=== PATIENT | male | born 1945 | race Two or more races ===

== ENCOUNTER 2022-02-09 18:23 | Inpatient (IN) | payer OTHER ==
[~2022-02-09] VITALS: Ht 190.5 cm; Wt 73.7 kg
[2022-02-09] MEDS ORDERED: SODIUM CHLORIDE 0.9% 1,000 ML IV ONE (19:00)
[2022-02-09 19:42] LABS: Basophils # (auto) 0.1 10 ^3/uL (0-0.2); Basophils % (auto) 1.5 % (0.0-2.0); Eosinophils # (auto) 0.2 10 ^3/uL (0-0.8); Eosinophils % (auto) 3.4 % (0.0-7.0); Hematocrit 39.4 % (41.0-53.0); Lymphocytes # (auto) 1.5 10 ^3/uL (0.4-5.4); Lymphocytes % (auto) 30.2 % (10.0-50.0); Mean Corpuscular Hemoglobin 32.1 pg (28.0-32.0); Mean Corpuscular Volume 97.4 fL (80.0-100.0); Monocytes # (auto) 0.6 10 ^3/uL (0-1.3); Monocytes % (auto) 12.5 % (0.0-12.0); Neutrophils # (auto) 2.6 10 ^3/uL (1.6-8.6); Neutrophils % (auto) 52.4 % (37.0-80.0); Nucleated Red Blood Cells % 0.1 %; Red Blood Cells 4.05 10^6/uL (4.5-5.90); Red Cell Distribution Width 15.8 % (11.8-14.3); White Blood Cell 4.9 10^3/uL (4.4-10.8)
[2022-02-09 20:06] LABS: Albumin 3.9 g/dL (3.4-5.0); BUN/Creatinine Ratio 9.9; Calcium 9.3 mg/dL (8.5-10.1); Magnesium 1.9 mg/dL (1.6-2.6); Potassium 3.9 mmol/L (3.5-5.1)
[2022-02-09 20:09] LABS: Bilirubin, Total 0.7 mg/dL (0.2-1.0); Total Protein 7.6 g/dL (6.4-8.2)
[2022-02-09] MEDS ORDERED: ONDANSETRON HCL 4 MG/2 ML VIAL IV PRN (21:45)
[2022-02-09] MEDS ORDERED: MORPHINE SULFATE INJ 2 MG/ml SYRG IV PRN (21:45)
[2022-02-09] MEDS ORDERED: DEXTROSE (50%) 50ML SYRG IV PRN (21:45)
[2022-02-09] MEDS ORDERED: ACETAMINOPHEN 325 MG TAB PO PRN (21:45)
[2022-02-09] MEDS ORDERED: NITROGLYCERIN 0.4 MG SL TAB SL PRN (21:45)
[2022-02-09] MEDS ORDERED: AZITHROMYCIN 500MG/ 250ML 250 ML IV ONE (22:15)
[2022-02-09] MEDS: ACCU-CHEK COMFORT CURVE STRIP VI SCH (22:18)
[2022-02-09] MEDS: InsuLIN REG 1unit/0.01ml Soln (100units/ml) SC SCH (22:21)
[2022-02-10] MEDS ORDERED: ALBUMIN 5% 250 ML IV ONE (00:45)
[2022-02-10 05:06] LABS: Basophils # (auto) 0 10 ^3/uL (0-0.2); Basophils % (auto) 0.6 % (0.0-2.0); Eosinophils # (auto) 0.1 10 ^3/uL (0-0.8); Hematocrit 34.4 % (41.0-53.0); Hemoglobin 11.5 g/dL (13.5-17.5); Lymphocytes # (auto) 1.2 10 ^3/uL (0.4-5.4); Lymphocytes % (auto) 20.9 % (10.0-50.0); Mean Corpuscular Hemoglobin 32.3 pg (28.0-32.0); Mean Corpuscular Hgb Conc. 33.4 g/dL (32.0-36.0); Mean Corpuscular Volume 96.7 fL (80.0-100.0); Monocytes # (auto) 0.8 10 ^3/uL (0-1.3); Monocytes % (auto) 13.2 % (0.0-12.0); Neutrophils # (auto) 3.6 10 ^3/uL (1.6-8.6); Neutrophils % (auto) 63.3 % (37.0-80.0); Nucleated Red Blood Cells % 0.2 %; Red Blood Cells 3.56 10^6/uL (4.5-5.90); Red Cell Distribution Width 16.2 % (11.8-14.3); White Blood Cell 5.7 10^3/uL (4.4-10.8)
[2022-02-10] MEDS ORDERED: SODIUM CHLORIDE 0.9% 1,000 ML IV ONE (05:10)
[2022-02-10 05:28] LABS: Calcium 8.9 mg/dL (8.5-10.1); Potassium 3.7 mmol/L (3.5-5.1)
[2022-02-10 05:30] LABS: BUN/Creatinine Ratio 11.4
[2022-02-10] MEDS: InsuLIN REG 1unit/0.01ml Soln (100units/ml) SC SCH ×4 (06:50→21:30)
[2022-02-10] MEDS: ACCU-CHEK COMFORT CURVE STRIP VI SCH ×4 (06:50→21:17)
[2022-02-10 07:18] LABS: Urine Amorphous Crystal FEW /hpf (None Seen); Urine Bacteria MOD /hpf (None Seen); Urine Blood Negative /uL (Negative); Urine Mucus FEW (None Seen); Urine Specific Gravity 1.016 (1.001-1.035); Urine WBC 40 /hpf (0 - 3)
[2022-02-10] MEDS: ENOXAPARIN SOD 40 MG/0.4 ML SYRINGE SC SCH (09:35)
[2022-02-10] MEDS: PANTOPRAZOLE 40 MG TAB PO SCH (09:35)
[2022-02-10] MEDS ORDERED: cefTRIAXone 1GM/50ML D5W 50 ML IV ONE (11:15)
[2022-02-10] MEDS: SODIUM CHLORIDE 0.9% 1,000 ML IV SCH ×2 (11:33→21:31)
[2022-02-10 16:00] VITALS: BP 104/71
[2022-02-10] MEDS ORDERED: METF-372 PO (16:14)
[2022-02-10] MEDS ORDERED: INSU1INJ4 SC (16:14)
[2022-02-10] MEDS ORDERED: GLIP10TA9 PO (16:14)
[2022-02-10] MEDS ORDERED: GLUC-149 XX (16:14)
[2022-02-10 16:50] VITALS: BP 104/71
[2022-02-10] MEDS: Glucerna Carbsteady SHAKE Stawberry 8oz PO SCH (18:10)
[2022-02-10] MEDS: AZITHROMYCIN 500MG/ 250ML 250 ML IV SCH (21:31)
[2022-02-10 22:00] VITALS: BP 104/69
[2022-02-11 05:00] VITALS: BP 99/63
[2022-02-11] MEDS: ACCU-CHEK COMFORT CURVE STRIP VI SCH ×4 (06:28→21:55)
[2022-02-11] MEDS: InsuLIN REG 1unit/0.01ml Soln (100units/ml) SC SCH ×4 (06:33→22:01)
[2022-02-11 07:30] VITALS: BP 134/80
[2022-02-11] MEDS: SODIUM CHLORIDE 0.9% 1,000 ML IV SCH ×2 (07:45→17:15)
[2022-02-11 07:55] LABS: Basophils # (auto) 0 10 ^3/uL (0-0.2); Basophils % (auto) 0.6 % (0.0-2.0); Eosinophils # (auto) 0.1 10 ^3/uL (0-0.8); Eosinophils % (auto) 2.4 % (0.0-7.0); Hematocrit 36.7 % (41.0-53.0); Hemoglobin 12.1 g/dL (13.5-17.5); Lymphocytes % (auto) 24.9 % (10.0-50.0); Mean Corpuscular Hgb Conc. 33.1 g/dL (32.0-36.0); Mean Corpuscular Volume 96.7 fL (80.0-100.0); Monocytes # (auto) 0.5 10 ^3/uL (0-1.3); Monocytes % (auto) 12.9 % (0.0-12.0); Neutrophils # (auto) 2.5 10 ^3/uL (1.6-8.6); Neutrophils % (auto) 59.2 % (37.0-80.0); Nucleated Red Blood Cells % 0.1 %; Red Blood Cells 3.79 10^6/uL (4.5-5.90); Red Cell Distribution Width 15.9 % (11.8-14.3); White Blood Cell 4.2 10^3/uL (4.4-10.8)
[2022-02-11] MEDS: Glucerna Carbsteady SHAKE Stawberry 8oz PO SCH ×3 (08:30→17:38)
[2022-02-11 08:31] LABS: Potassium 3.6 mmol/L (3.5-5.1)
[2022-02-11 08:37] LABS: BUN/Creatinine Ratio 10.6; Bilirubin, Total 0.4 mg/dL (0.2-1.0); Calcium 8.9 mg/dL (8.5-10.1); Magnesium 1.5 mg/dL (1.6-2.6); Total Protein 6.3 g/dL (6.4-8.2)
[2022-02-11] MEDS: cefTRIAXone 1GM/50ML D5W 50 ML IV SCH (08:58)
[2022-02-11] MEDS: PANTOPRAZOLE 40 MG TAB PO SCH (08:58)
[2022-02-11] MEDS: ENOXAPARIN SOD 40 MG/0.4 ML SYRINGE SC SCH (08:59)
[2022-02-11 09:00] VITALS: BP 134/80
[2022-02-11 13:00] VITALS: BP 132/81
[2022-02-11 16:46] VITALS: BP 118/76
[2022-02-11 22:00] VITALS: BP 126/81
[2022-02-11] MEDS: AZITHROMYCIN 500MG/ 250ML 250 ML IV SCH (22:04)
[2022-02-11] MEDS: MAGNESIUM OXIDE 400 MG TAB PO SCH (22:04)
[2022-02-12] MEDS: SODIUM CHLORIDE 0.9% 1,000 ML IV SCH ×2 (03:15→12:37)
[2022-02-12 05:00] VITALS: BP 122/80
[2022-02-12 05:26] LABS: Calcium 8.8 mg/dL (8.5-10.1); Magnesium 1.5 mg/dL (1.6-2.6); Potassium 3.2 mmol/L (3.5-5.1)
[2022-02-12 05:28] LABS: BUN/Creatinine Ratio 10.9
[2022-02-12] MEDS: ACCU-CHEK COMFORT CURVE STRIP VI SCH ×3 (06:15→17:41)
[2022-02-12] MEDS: InsuLIN REG 1unit/0.01ml Soln (100units/ml) SC SCH ×3 (06:19→17:41)
[2022-02-12 08:00] VITALS: BP 133/89
[2022-02-12] MEDS: Glucerna Carbsteady SHAKE Stawberry 8oz PO SCH ×3 (08:00→17:56)
[2022-02-12 08:30] VITALS: BP 133/89
[2022-02-12] MEDS: cefTRIAXone 1GM/50ML D5W 50 ML IV SCH (09:00)
[2022-02-12] MEDS: MAGNESIUM OXIDE 400 MG TAB PO SCH (10:12)
[2022-02-12] MEDS: PANTOPRAZOLE 40 MG TAB PO SCH (10:12)
[2022-02-12] MEDS: ENOXAPARIN SOD 40 MG/0.4 ML SYRINGE SC SCH (10:12)
[2022-02-12 13:00] VITALS: BP 145/90
[2022-02-12] MEDS ORDERED: LEVO-28 PO (16:27)
[2022-02-12 16:41] VITALS: BP 145/89
[2022-02-12 16:57] VITALS: BP 145/90
[2022-02-12] MEDS ORDERED: AZITHROMYCIN 250 MG TAB PO SCH (21:00)
== END 2022-02-12 20:20 | disposition home health service (06) | DRG 193 ==
LOC: ER 18:23 → EDBD 18:23 → TELE 21:44 → UNDODISIN 02-10 14:47 → TELE-WESTW 02-10 15:26
PROVIDERS: ADMIT Nurse Practitioner; ATTEND Internal Medicine Geriatric Medicine
DX: J18.9 Pneumonia, unspecified organism (principal); N17.0 Acute kidney failure with tubular necrosis; N39.0 Urinary tract infection, site not specified; R64 Cachexia; E11.65 Type 2 diabetes mellitus with hyperglycemia; Z20.822 Contact with and (suspected) exposure to COVID-19; I95.9 Hypotension, unspecified; Z83.3 Family history of diabetes mellitus; Z91.14 Patient's other noncompliance with medication regimen; Z68.20 Body mass index [BMI] 20.0-20.9, adult
CPT/HCPCS: 36415; 70450; 71045; 80048; 80053; 81001; 82962; 83605; 83735; 83880; 84484; 85025; 93005; 96361; 96365; 96366; 96367; 97163; G0378; J0696; J1815

== ENCOUNTER 2022-06-16 15:09 | Inpatient (IN) | payer OTHER ==
[~2022-06-16] VITALS: Ht 190.5 cm; Wt 70.1 kg
[~2022-06-16 15:09] MED LIST: GLIP10TA9 PO; GLUC-149 XX; INSU1INJ4 SC; LEVO-28 PO; METF-372 PO
[2022-06-16] MEDS ORDERED: InsuLIN REG 1unit/0.01ml Soln (100units/ml) IV ONE ×2 (15:45→17:15)
[2022-06-16] MEDS ORDERED: SODIUM CHLORIDE 0.9% 1,000 ML IVB ONE (15:45)
[2022-06-16 16:21] LABS: Basophils # (auto) 0 10 ^3/uL (0-0.2); Basophils % (auto) 0.6 % (0.0-2.0); Eosinophils # (auto) 0 10 ^3/uL (0-0.8); Hematocrit 45.9 % (41.0-53.0); Hemoglobin 14.2 g/dL (13.5-17.5); Lymphocytes % (auto) 15.4 % (10.0-50.0); Mean Corpuscular Hemoglobin 28.2 pg (28.0-32.0); Mean Corpuscular Hgb Conc. 30.9 g/dL (32.0-36.0); Mean Corpuscular Volume 91.1 fL (80.0-100.0); Monocytes # (auto) 0.3 10 ^3/uL (0-1.3); Monocytes % (auto) 4.5 % (0.0-12.0); Neutrophils # (auto) 5.1 10 ^3/uL (1.6-8.6); Neutrophils % (auto) 79.5 % (37.0-80.0); Red Blood Cells 5.04 10^6/uL (4.5-5.90); Red Cell Distribution Width 14.8 % (11.8-14.3); White Blood Cell 6.4 10^3/uL (4.4-10.8)
[2022-06-16 16:59] LABS: Alkaline Phosphatase 98 U/L (45-117); Anion Gap 28 (5-15); Aspartate Aminotransferase 17 U/L (15-37); BUN/Creatinine Ratio 15.2; Blood Urea Nitrogen 27 mg/dL (7-18); Carbon Dioxide 12 mmol/L (21-32); Chloride 90 mmol/L (98-107); GFR African American 48 mL/min; GFR Non-African American 40 mL/min; Sodium 130 mmol/L (136-145)
[2022-06-16 17:00] LABS: Alanine Aminotransferase 16 U/L (16-61); Albumin 4.3 g/dL (3.4-5.0); Calcium 10.3 mg/dL (8.5-10.1)
[2022-06-16 17:05] LABS: Potassium 5.7 mmol/L (3.5-5.1)
[2022-06-16 17:06] LABS: Glucose 644 mg/dL (74-106)
[2022-06-16] MEDS ORDERED: SODIUM BICARBONATE 8.4 % INJ 50ML VIAL IV ONE (17:15)
[2022-06-16] MEDS ORDERED: CALCIUM GLUC 1,000mg/50ml-NS 50 ML IV ONE (17:15)
[2022-06-16 17:26] LABS: Urine Bacteria NONE SEEN /hpf (None Seen); Urine Blood Negative /uL (Negative); Urine Mucus FEW (None Seen); Urine WBC <1 /hpf (0 - 3)
[2022-06-16] MEDS: ACCU-CHEK COMFORT CURVE STRIP VI SCH ×5 (18:00→23:55)
[2022-06-16] MEDS ORDERED: INSULIN LANTUS (GLARGINE) 1 /0.01ml (100units/ml) SC ONE (18:00)
[2022-06-16] MEDS ORDERED: InsuLIN R (HUMAN) 100 UNITS in SODIUM CHL 0.9% 99 ML IV SCH (18:00)
[2022-06-16] MEDS ORDERED: DEXTROSE (50%) 50ML SYRG IV PRN (18:00)
[2022-06-16] MEDS ORDERED: NITROGLYCERIN 0.4 MG SL TAB SL PRN (18:15)
[2022-06-16] MEDS ORDERED: MORPHINE SULFATE INJ 2 MG/ml SYRG IV PRN (18:15)
[2022-06-16] MEDS ORDERED: PANTOPRAZOLE 40 MG/10 ML VIAL INJ IV ONE (18:15)
[2022-06-16] MEDS: SODIUM CHLORIDE 0.9% 1,000 ML IV SCH ×2 (18:55→21:48)
[2022-06-16 19:07] LABS: Magnesium 2.3 mg/dL (1.6-2.6); Phosphorus 5.6 mg/dL (2.5-4.90)
[2022-06-16] MEDS ORDERED: SODIUM CHLORIDE 0.9% 1,000 ML IV SCH (22:00)
[2022-06-17] VITALS (7 sets, daily range): BP systolic 139–149; BP diastolic 87–95
[2022-06-17 00:20] LABS: BUN/Creatinine Ratio 16.7; Potassium 4.8 mmol/L (3.5-5.1)
[2022-06-17] MEDS: SODIUM CHLORIDE 0.9% 1,000 ML IV SCH ×2 (00:36→06:45)
[2022-06-17] MEDS: ACCU-CHEK COMFORT CURVE STRIP VI SCH ×8 (01:32→22:15)
[2022-06-17 05:57] LABS: Basophils # (auto) 0.1 10 ^3/uL (0-0.2); Basophils % (auto) 0.7 % (0.0-2.0); Eosinophils # (auto) 0 10 ^3/uL (0-0.8); Eosinophils % (auto) 0.2 % (0.0-7.0); Hematocrit 38.8 % (41.0-53.0); Hemoglobin 13.2 g/dL (13.5-17.5); Lymphocytes # (auto) 1.6 10 ^3/uL (0.4-5.4); Lymphocytes % (auto) 19.2 % (10.0-50.0); Mean Corpuscular Hemoglobin 29.6 pg (28.0-32.0); Mean Corpuscular Hgb Conc. 34.1 g/dL (32.0-36.0); Mean Corpuscular Volume 86.8 fL (80.0-100.0); Monocytes % (auto) 11.9 % (0.0-12.0); Neutrophils # (auto) 5.7 10 ^3/uL (1.6-8.6); Red Blood Cells 4.47 10^6/uL (4.5-5.90); Red Cell Distribution Width 14.2 % (11.8-14.3); White Blood Cell 8.4 10^3/uL (4.4-10.8)
[2022-06-17 07:29] LABS: Albumin 3.5 g/dL (3.4-5.0); BUN/Creatinine Ratio 17.2; Bilirubin, Total 0.5 mg/dL (0.2-1.0); Calcium 9.2 mg/dL (8.5-10.1); Potassium 4.1 mmol/L (3.5-5.1)
[2022-06-17] MEDS: D5W/SOD CHL 0.45% 1,000 ML IV SCH ×2 (08:09→18:00)
[2022-06-17] MEDS ORDERED: DEXTROSE (50%) 50ML SYRG IV PRN (09:00)
[2022-06-17 09:12] LABS: Urine Bacteria FEW /hpf (None Seen); Urine Blood Negative /uL (Negative); Urine Hyaline Cast FEW /lpf (0 - 2); Urine Mucus FEW (None Seen); Urine Specific Gravity 1.022 (1.001-1.035); Urine WBC 1 /hpf (0 - 3)
[2022-06-17] MEDS ORDERED: PANTOPRAZOLE 40 MG/10 ML VIAL INJ IV SCH (10:00)
[2022-06-17] MEDS: ENOXAPARIN SOD 40 MG/0.4 ML SYRINGE SC SCH (10:08)
[2022-06-17] MEDS: INSULIN LANTUS (GLARGINE) 1 /0.01ml (100units/ml) SC SCH (10:11)
[2022-06-17] MEDS: PANTOPRAZOLE 40 MG TAB PO SCH ×2 (10:12→22:07)
[2022-06-17 10:24] LABS: INR 1.02 (0.9-1.15)
[2022-06-17] MEDS: SUCRALFATE 1 GM/10 ML ORAL SUSP PO SCH ×3 (11:33→22:13)
[2022-06-17] MEDS: InsuLIN REG 1unit/0.01ml Soln (100units/ml) SC SCH ×2 (11:37→17:39)
[2022-06-17 15:28] LABS: BUN/Creatinine Ratio 15.5; Calcium 9.1 mg/dL (8.5-10.1); Potassium 3.5 mmol/L (3.5-5.1)
[2022-06-17] MEDS ORDERED: InsuLIN REG 1unit/0.01ml Soln (100units/ml) SC SCH (22:00)
[2022-06-18 05:00] VITALS: BP 155/93
[2022-06-18 06:12] LABS: Basophils # (auto) 0 10 ^3/uL (0-0.2); Basophils % (auto) 0.5 % (0.0-2.0); Eosinophils # (auto) 0.1 10 ^3/uL (0-0.8); Eosinophils % (auto) 1.3 % (0.0-7.0); Hematocrit 36.3 % (41.0-53.0); Hemoglobin 12.3 g/dL (13.5-17.5); Lymphocytes # (auto) 1.6 10 ^3/uL (0.4-5.4); Lymphocytes % (auto) 29.2 % (10.0-50.0); Mean Corpuscular Hemoglobin 28.7 pg (28.0-32.0); Mean Corpuscular Hgb Conc. 33.8 g/dL (32.0-36.0); Mean Corpuscular Volume 85.1 fL (80.0-100.0); Monocytes # (auto) 0.6 10 ^3/uL (0-1.3); Monocytes % (auto) 11.2 % (0.0-12.0); Neutrophils # (auto) 3.2 10 ^3/uL (1.6-8.6); Neutrophils % (auto) 57.8 % (37.0-80.0); Nucleated Red Blood Cells % 0.1 %; Red Blood Cells 4.27 10^6/uL (4.5-5.90); Red Cell Distribution Width 14.5 % (11.8-14.3); White Blood Cell 5.6 10^3/uL (4.4-10.8)
[2022-06-18 06:31] LABS: Potassium 3.3 mmol/L (3.5-5.1)
[2022-06-18 06:35] LABS: BUN/Creatinine Ratio 12.7; Calcium 8.4 mg/dL (8.5-10.1)
[2022-06-18] MEDS: InsuLIN REG 1unit/0.01ml Soln (100units/ml) SC SCH ×2 (07:55→11:30)
[2022-06-18] MEDS: ACCU-CHEK COMFORT CURVE STRIP VI SCH ×2 (07:56→11:30)
[2022-06-18] MEDS ORDERED: NALOXONE HCL 0.4 MG/ML VIAL ONE (08:38)
[2022-06-18] MEDS ORDERED: SODIUM CHLORIDE LOCK 10 ML ONE (08:38)
[2022-06-18] MEDS ORDERED: MIDAZOLAM HCL 5 MG/ML-1ML VIAL ONE (08:38)
[2022-06-18] MEDS ORDERED: LIDOCAINE 2%HCL (LOCAL ANESTH.) INJ 20ML MDV ONE (08:39)
[2022-06-18] MEDS ORDERED: fentaNYL CITRATE 100 MCG/2 ML VL ONE (08:39)
[2022-06-18] MEDS ORDERED: LIDOCAINE VISCOUS 2% 15ML UD ONE (08:40)
[2022-06-18] MEDS ORDERED: diphenhdrAMINE HCL 50 MG/1 ML VL ONE (08:41)
[2022-06-18] MEDS ORDERED: FLUMAZENIL 0.1 MG/ML INJ 10ML MDV IV ONE (08:42)
[2022-06-18 09:00] VITALS: BP 158/93
[2022-06-18] MEDS: INSULIN LANTUS (GLARGINE) 1 /0.01ml (100units/ml) SC SCH (10:00)
[2022-06-18] MEDS ORDERED: POTASSIUM CHL 20 Meq TABLET PO ONE (10:45)
[2022-06-18] MEDS: SUCRALFATE 1 GM/10 ML ORAL SUSP PO SCH ×2 (10:51→12:03)
[2022-06-18] MEDS: PANTOPRAZOLE 40 MG TAB PO SCH (10:51)
[2022-06-18] MEDS: ENOXAPARIN SOD 40 MG/0.4 ML SYRINGE SC SCH (10:52)
[2022-06-18] MEDS ORDERED: SUCR1SUS10 PO (11:32)
[2022-06-18] MEDS ORDERED: PANT40TA2 PO (11:32)
[2022-06-18 12:52] VITALS: BP 148/88
[2022-06-18 12:56] VITALS: BP 148/88
== END 2022-06-18 14:10 | disposition home or self-care (01) | DRG 638 ==
LOC: ER 15:09 → TELE 18:04 → TELE-CENTR 06-17 14:07
PROVIDERS: ADMIT Nurse Practitioner Family; ATTEND Internal Medicine Geriatric Medicine
PROC: 0DJ08ZZ Inspection of Upper Intestinal Tract, Via Natural or Artificial Opening Endoscopic (ICD-10-PCS; principal; 2022-06-18 09:20)
DX: E11.10 Type 2 diabetes mellitus with ketoacidosis without coma (principal); E87.0 Hyperosmolality and hypernatremia; E87.1 Hypo-osmolality and hyponatremia; N17.9 Acute kidney failure, unspecified; E83.52 Hypercalcemia; E87.5 Hyperkalemia; Z20.822 Contact with and (suspected) exposure to COVID-19; E87.6 Hypokalemia; K21.00 Gastro-esophageal reflux disease with esophagitis, without bleeding; K29.00 Acute gastritis without bleeding; K29.80 Duodenitis without bleeding; Z79.4 Long term (current) use of insulin; Z82.49 Family history of ischemic heart disease and other diseases of the circulatory system; Z83.3 Family history of diabetes mellitus
CPT/HCPCS: 36415; 36600; 43245; 74176; 80048; 80053; 81001; 82010; 82805; 82962; 83036; 83735; 83880; 83930; 84100; 85025; 85610; 87426; 93005; 96365; 96375; 99291; C9113; G0378; J1815; J2250

== ENCOUNTER 2023-02-16 18:18 | Inpatient (IN) | payer OTHER ==
[2023-02-16] VITALS (7 sets, daily range): BP systolic 90–136; BP diastolic 47–70; PULSE 111–137; RESP 27–33; TEMP 99.6; O2SAT 98–100
[~2023-02-16] VITALS: Ht 188 cm; Wt 94.1 kg
[~2023-02-16 18:18] MED LIST changes: -LEVO-28 PO; +PANT40TA2 PO; +SUCR1SUS26 PO
[2023-02-16] MEDS ORDERED: InsuLIN REG 1unit/0.01ml Soln (100units/ml) IV ONE (18:45)
[2023-02-16] MEDS ORDERED: CALCIUM GLUC 1,000mg/50ml-NS 50 ML IV ONE (18:45)
[2023-02-16] MEDS ORDERED: SODIUM CHLORIDE 0.9% 2,000 ML IV ONE (19:00)
[2023-02-16 19:01] LABS: Hemoglobin 11.8 g/dL (13.5-17.5); Nucleated Red Blood Cells % 0.1 %
[2023-02-16 19:03] LABS: Basophils # (auto) 0 10 ^3/uL (0-0.2); Basophils % (auto) 0.2 % (0.0-2.0)
[2023-02-16 19:12] LABS: Eosinophils # (auto) 0.1 10 ^3/uL (0-0.8); Hematocrit 42.5 % (41.0-53.0); Lymphocytes # (auto) 1.1 10 ^3/uL (0.4-5.4); Mean Corpuscular Hgb Conc. 27.7 g/dL (32.0-36.0)
[2023-02-16 19:14] LABS: Eosinophils % (auto) 0.4 % (0.0-7.0); Lymphocytes % (auto) 5.9 % (10.0-50.0); Mean Corpuscular Hemoglobin 32.8 pg (28.0-32.0); Mean Corpuscular Volume 118.4 fL (80.0-100.0); Monocytes # (auto) 2.4 10 ^3/uL (0-1.3); Monocytes % (auto) 12.4 % (0.0-12.0); Neutrophils # (auto) 15.6 10 ^3/uL (1.6-8.6); Neutrophils % (auto) 81.1 % (37.0-80.0); Red Blood Cells 3.59 10^6/uL (4.5-5.90); Red Cell Distribution Width 14.9 % (11.8-14.3); White Blood Cell 19.2 10^3/uL (4.4-10.8)
[2023-02-16] MEDS ORDERED: SODIUM BICARBONATE 50ML VIAL 150 ML in SOD CHL 0.45% 1,000 ML IV ONE (19:15)
[2023-02-16] MEDS: NOREPINEPHRINE 8 MG/250ML KIT 250 ML IV SCH (19:30)
[2023-02-16 19:32] LABS: Albumin 3.6 g/dL (3.4-5.0); Calcium 8.3 mg/dL (8.5-10.1)
[2023-02-16] MEDS ORDERED: NOREPINEPHRINE 8 MG/250ML KIT 250 ML IV ONE (19:33)
[2023-02-16 19:42] LABS: BUN/Creatinine Ratio 12.9 (10.0-20.0); Bilirubin, Total 0.7 mg/dL (0.2-1.0); Total Protein 6.4 g/dL (6.4-8.2)
[2023-02-16 19:47] LABS: Potassium 6.6 mmol/L (3.5-5.1)
[2023-02-16 19:58] LABS: Urine Bacteria MOD /hpf (None Seen); Urine Blood TRACE /uL (Negative); Urine Hyaline Cast FEW /lpf (0 - 2); Urine Specific Gravity 1.016 (1.001-1.035); Urine Sperm PRESENT /hpf (None Seen); Urine WBC 3 /hpf (0 - 3)
[2023-02-16] MEDS ORDERED: INSULIN LANTUS (GLARGINE) 1 /0.01ml (100units/ml) SC ONE (20:00)
[2023-02-16] MEDS ORDERED: ALBUTEROL SULF 2.5 MG/0.5ML(0.5%) NEB SOLN NEB ONE (20:00)
[2023-02-16] MEDS ORDERED: DEXTROSE (50%) 50ML SYRG IV PRN (20:00)
[2023-02-16] MEDS: SODIUM CHLORIDE 0.9% 1,000 ML IV SCH ×2 (20:00→22:07)
[2023-02-16] MEDS ORDERED: InsuLIN R (HUMAN) 100 UNITS in SODIUM CHL 0.9% 99 ML IV SCH (20:00)
[2023-02-16 20:48] LABS: Magnesium 3.4 mg/dL (1.6-2.6)
[2023-02-16] MEDS ORDERED: NITROGLYCERIN 0.4 MG SL TAB SL PRN (21:00)
[2023-02-16] MEDS ORDERED: ONDANSETRON HCL 4 MG/2 ML VIAL IV PRN (21:00)
[2023-02-16] MEDS ORDERED: MORPHINE SULFATE INJ 2 MG/ml SYRG IV PRN (21:00)
[2023-02-16] MEDS ORDERED: ACETAMINOPHEN 325 MG TAB PO PRN (21:00)
[2023-02-16] MEDS: ACCU-CHEK COMFORT CURVE STRIP VI SCH ×3 (21:02→23:57)
[2023-02-16 21:03] LABS: Phosphorus 11.6 mg/dL (2.5-4.90)
[2023-02-16 21:59] LABS: Lactic Acid w/Reflex 3.7 mmol/L (0.4-2.0)
[2023-02-16 22:04] LABS: Calcium 8.9 mg/dL (8.5-10.1); Potassium 3.5 mmol/L (3.5-5.1)
[2023-02-16 22:13] LABS: BUN/Creatinine Ratio 12.6 (10.0-20.0)
[2023-02-16] MEDS ORDERED: PROPOFOL 100 ML IV ONE (23:16)
[2023-02-16] MEDS: PROPOFOL 100 ML IV SCH (23:42)
[2023-02-17] VITALS (106 sets, daily range): BP systolic 101–148; BP diastolic 56–91; PULSE 92–159; RESP 11–48; TEMP 95.5–98.8; O2SAT 97–100
[2023-02-17] MEDS ORDERED: SODIUM CHLORIDE 0.9% 1,000 ML IV SCH
[2023-02-17] MEDS ORDERED: cefTRIAXone 1GM/50ML D5W 50 ML IV ONE (00:15)
[2023-02-17] MEDS: MIDAZOLAM DRIP 50 mg/50mL 50 ML IV SCH (01:14)
[2023-02-17] MEDS: fentaNYL Drip 2500mCg/250mlNS 250 ML IV SCH (01:14)
[2023-02-17] MEDS: ACCU-CHEK COMFORT CURVE STRIP VI SCH ×15 (01:32→23:04)
[2023-02-17] MEDS: SODIUM CHLORIDE 0.9% 1,000 ML IV SCH ×2 (02:01→06:50)
[2023-02-17 02:36] LABS: Calcium 8.1 mg/dL (8.5-10.1)
[2023-02-17 02:44] LABS: BUN/Creatinine Ratio 12.5 (10.0-20.0)
[2023-02-17 02:59] LABS: Potassium 2.6 mmol/L (3.5-5.1)
[2023-02-17] MEDS ORDERED: InsuLIN R (HUMAN) 100 UNITS in SODIUM CHL 0.9% 99 ML IV SCH ×4 (03:30→17:30)
[2023-02-17 04:30] LABS: Basophils # (auto) 0 10 ^3/uL (0-0.2); Basophils % (auto) 0.1 % (0.0-2.0); Eosinophils # (auto) 0 10 ^3/uL (0-0.8); Hematocrit 35.4 % (41.0-53.0); Hemoglobin 11.6 g/dL (13.5-17.5); Lymphocytes # (auto) 0.5 10 ^3/uL (0.4-5.4); Lymphocytes % (auto) 3.7 % (10.0-50.0); Mean Corpuscular Hgb Conc. 32.7 g/dL (32.0-36.0); Mean Corpuscular Volume 100.8 fL (80.0-100.0); Monocytes # (auto) 1.5 10 ^3/uL (0-1.3); Monocytes % (auto) 12.4 % (0.0-12.0); Neutrophils # (auto) 10.4 10 ^3/uL (1.6-8.6); Neutrophils % (auto) 83.8 % (37.0-80.0); Nucleated Red Blood Cells % 0.1 %; Red Blood Cells 3.51 10^6/uL (4.5-5.90); Red Cell Distribution Width 13.5 % (11.8-14.3); White Blood Cell 12.4 10^3/uL (4.4-10.8)
[2023-02-17 04:54] LABS: Albumin 2.8 g/dL (3.4-5.0); Bilirubin, Total 0.4 mg/dL (0.2-1.0); Calcium 8.1 mg/dL (8.5-10.1); Total Protein 5.8 g/dL (6.4-8.2)
[2023-02-17 05:12] LABS: Potassium 2.6 mmol/L (3.5-5.1)
[2023-02-17] MEDS: PROPOFOL 100 ML IV SCH (06:19)
[2023-02-17] MEDS: InsuLIN R (HUMAN) 100 UNITS in SODIUM CHL 0.9% 99 ML IV SCH ×2 (06:30→10:45)
[2023-02-17] MEDS: POTASSIUM CHL 20MEQ/100ML 100 ML IV SCH ×6 (06:56→19:52)
[2023-02-17] MEDS ORDERED: InsuLIN REG 1unit/0.01ml Soln (100units/ml) SC ONE ×2 (08:00→11:00)
[2023-02-17] MEDS: SOD CHL 0.45% 1,000 ML IV SCH ×2 (08:47→12:37)
[2023-02-17] MEDS ORDERED: InsuLIN REG 1unit/0.01ml Soln (100units/ml) IV ONE (09:30)
[2023-02-17] MEDS ORDERED: PANTOPRAZOLE 40 MG TAB PO SCH (10:00)
[2023-02-17] MEDS: INSULIN LANTUS (GLARGINE) 1 /0.01ml (100units/ml) SC SCH (10:00)
[2023-02-17 11:16] LABS: Calcium 8.2 mg/dL (8.5-10.1)
[2023-02-17 11:19] LABS: BUN/Creatinine Ratio 12.7 (10.0-20.0)
[2023-02-17 11:28] LABS: Potassium 2.5 mmol/L (3.5-5.1)
[2023-02-17 14:58] LABS: BUN/Creatinine Ratio 13.7 (10.0-20.0); Calcium 8.4 mg/dL (8.5-10.1)
[2023-02-17] MEDS ORDERED: CALCIUM CHLOR(10%) 100MG/ML 10ML SYRINGE IV ONE (15:09)
[2023-02-17] MEDS ORDERED: EPINEPHrine HCL 1 MG/10 ML SYRG IV ONE (15:09)
[2023-02-17] MEDS ORDERED: SODIUM BICARBONATE 8.4% INJ 50ML SYRINGE IV ONE (15:09)
[2023-02-17] MEDS: D5W/SOD CHL 0.45% 1,000 ML IV SCH ×2 (15:19→23:07)
[2023-02-17 15:33] LABS: Potassium 2.8 mmol/L (3.5-5.1)
[2023-02-17 18:53] LABS: BUN/Creatinine Ratio 13.7 (10.0-20.0); Calcium 8.1 mg/dL (8.5-10.1); Potassium 3.7 mmol/L (3.5-5.1)
[2023-02-17] MEDS: NOREPINEPHRINE 8 MG/250ML KIT 250 ML IV SCH (19:30)
[2023-02-17] MEDS: cefTRIAXone 1GM/50ML D5W 50 ML IV SCH (21:15)
[2023-02-17 22:27] LABS: BUN/Creatinine Ratio 13.8 (10.0-20.0); Potassium 4.2 mmol/L (3.5-5.1)
[2023-02-18] VITALS (110 sets, daily range): BP systolic 104–161; BP diastolic 68–98; PULSE 96–113; RESP 10–48; TEMP 94.5–99.2; O2SAT 99–100
[2023-02-18] MEDS: ACCU-CHEK COMFORT CURVE STRIP VI SCH ×10 (00:12→23:54)
[2023-02-18] MEDS: PROPOFOL 100 ML IV SCH (00:54)
[2023-02-18] MEDS: fentaNYL Drip 2500mCg/250mlNS 250 ML IV SCH (01:00)
[2023-02-18] MEDS: MIDAZOLAM DRIP 50 mg/50mL 50 ML IV SCH (01:00)
[2023-02-18] MEDS ORDERED: InsuLIN R (HUMAN) 100 UNITS in SODIUM CHL 0.9% 99 ML IV SCH (03:30)
[2023-02-18 03:44] LABS: BUN/Creatinine Ratio 14.3 (10.0-20.0); Calcium 7.9 mg/dL (8.5-10.1)
[2023-02-18] MEDS: D5W/SOD CHL 0.45% 1,000 ML IV SCH ×4 (06:19→18:36)
[2023-02-18 07:01] LABS: Basophils # (auto) 0 10 ^3/uL (0-0.2); Basophils % (auto) 0.1 % (0.0-2.0); Eosinophils # (auto) 0 10 ^3/uL (0-0.8); Eosinophils % (auto) 0.1 % (0.0-7.0); Hematocrit 31.1 % (41.0-53.0); Hemoglobin 10.7 g/dL (13.5-17.5); Lymphocytes # (auto) 0.5 10 ^3/uL (0.4-5.4); Lymphocytes % (auto) 3.7 % (10.0-50.0); Mean Corpuscular Hemoglobin 33.9 pg (28.0-32.0); Mean Corpuscular Hgb Conc. 34.4 g/dL (32.0-36.0); Mean Corpuscular Volume 98.5 fL (80.0-100.0); Monocytes # (auto) 1.2 10 ^3/uL (0-1.3); Monocytes % (auto) 7.9 % (0.0-12.0); Neutrophils % (auto) 88.2 % (37.0-80.0); Nucleated Red Blood Cells % 0.1 %; Red Blood Cells 3.16 10^6/uL (4.5-5.90); Red Cell Distribution Width 13.6 % (11.8-14.3); White Blood Cell 14.7 10^3/uL (4.4-10.8)
[2023-02-18 07:26] LABS: Albumin 2.4 g/dL (3.4-5.0); Calcium 7.9 mg/dL (8.5-10.1); Magnesium 2.1 mg/dL (1.6-2.6); Potassium 3.5 mmol/L (3.5-5.1)
[2023-02-18 07:30] LABS: BUN/Creatinine Ratio 15.1 (10.0-20.0); Bilirubin, Total 0.2 mg/dL (0.2-1.0); Total Protein 5.2 g/dL (6.4-8.2)
[2023-02-18] MEDS ORDERED: DEXTROSE (50%) 50ML SYRG IV PRN (09:15)
[2023-02-18] MEDS ORDERED: PANTOPRAZOLE 40 MG/10 ML VIAL INJ IV ONE (09:39)
[2023-02-18] MEDS: INSULIN LANTUS (GLARGINE) 1 /0.01ml (100units/ml) SC SCH (09:45)
[2023-02-18] MEDS: PANTOPRAZOLE 40 MG/10 ML VIAL INJ IV SCH (09:46)
[2023-02-18 10:28] LABS: BUN/Creatinine Ratio 13.3 (10.0-20.0); Calcium 8.3 mg/dL (8.5-10.1); Potassium 3.9 mmol/L (3.5-5.1)
[2023-02-18] MEDS: InsuLIN REG 1unit/0.01ml Soln (100units/ml) SC SCH ×4 (11:51→23:56)
[2023-02-18] MEDS ORDERED: BUMETANIDE 2.5mg/10ml (0.25 mg/ml) INJ IV ONE (13:15)
[2023-02-18] MEDS: NOREPINEPHRINE 8 MG/250ML KIT 250 ML IV SCH (19:30)
[2023-02-18] MEDS: cefTRIAXone 1GM/50ML D5W 50 ML IV SCH (21:30)
[2023-02-18 22:33] LABS: BUN/Creatinine Ratio 12.4 (10.0-20.0); Calcium 8.4 mg/dL (8.5-10.1); Potassium 3.6 mmol/L (3.5-5.1)
[2023-02-19] VITALS (77 sets, daily range): BP systolic 135–163; BP diastolic 76–104; PULSE 94–113; RESP 11–37; TEMP 98.6–100; O2SAT 98–100
[2023-02-19] MEDS: MIDAZOLAM DRIP 50 mg/50mL 50 ML IV SCH (01:00)
[2023-02-19] MEDS: fentaNYL Drip 2500mCg/250mlNS 250 ML IV SCH (01:00)
[2023-02-19] MEDS: D5W/SOD CHL 0.45% 1,000 ML IV SCH ×2 (01:35→08:58)
[2023-02-19 04:25] LABS: Basophils # (auto) 0 10 ^3/uL (0-0.2); Basophils % (auto) 0.1 % (0.0-2.0); Eosinophils # (auto) 0 10 ^3/uL (0-0.8); Eosinophils % (auto) 0.1 % (0.0-7.0); Hematocrit 34.3 % (41.0-53.0); Hemoglobin 11.5 g/dL (13.5-17.5); Lymphocytes # (auto) 0.6 10 ^3/uL (0.4-5.4); Lymphocytes % (auto) 2.9 % (10.0-50.0); Mean Corpuscular Hemoglobin 33.1 pg (28.0-32.0); Mean Corpuscular Hgb Conc. 33.4 g/dL (32.0-36.0); Mean Corpuscular Volume 99.2 fL (80.0-100.0); Monocytes # (auto) 1.2 10 ^3/uL (0-1.3); Monocytes % (auto) 5.9 % (0.0-12.0); Neutrophils # (auto) 18.8 10 ^3/uL (1.6-8.6); Nucleated Red Blood Cells % 0.1 %; Red Blood Cells 3.46 10^6/uL (4.5-5.90); Red Cell Distribution Width 14.2 % (11.8-14.3); White Blood Cell 20.7 10^3/uL (4.4-10.8)
[2023-02-19] MEDS: ACCU-CHEK COMFORT CURVE STRIP VI SCH ×5 (04:26→22:19)
[2023-02-19] MEDS: InsuLIN REG 1unit/0.01ml Soln (100units/ml) SC SCH ×5 (04:27→22:29)
[2023-02-19 04:44] LABS: Calcium 8.4 mg/dL (8.5-10.1); Magnesium 1.9 mg/dL (1.6-2.6); Potassium 3.5 mmol/L (3.5-5.1)
[2023-02-19 04:53] LABS: BUN/Creatinine Ratio 12.1 (10.0-20.0)
[2023-02-19] MEDS: PANTOPRAZOLE 40 MG/10 ML VIAL INJ IV SCH (08:58)
[2023-02-19] MEDS: INSULIN LANTUS (GLARGINE) 1 /0.01ml (100units/ml) SC SCH (09:02)
[2023-02-19] MEDS: FREE WATER GT SCH ×4 (10:00→22:21)
[2023-02-19] MEDS: AZITHROMYCIN 500MG/ 250ML 250 ML IV SCH (12:12)
[2023-02-19] MEDS: D5W 5% 1,000 ML IV SCH ×2 (12:12→22:24)
[2023-02-19] MEDS: CALCIUM ACETATE 667 MG CAP PEG SCH ×3 (12:12→22:19)
[2023-02-19 12:59] LABS: Calcium 8.3 mg/dL (8.5-10.1); Potassium 3.8 mmol/L (3.5-5.1)
[2023-02-19 13:06] LABS: Protein, Urine 34.2 mg/dL (0.0-11.9)
[2023-02-19 13:08] LABS: BUN/Creatinine Ratio 12.7 (10.0-20.0)
[2023-02-19] MEDS: hydrALAZINE HCL 20 MG/ML VL IV PRN ×2 (17:24→23:53)
[2023-02-19] MEDS: cefTRIAXone 1GM/50ML D5W 50 ML IV SCH (21:06)
[2023-02-19 22:28] LABS: BUN/Creatinine Ratio 13.1 (10.0-20.0); Calcium 8.6 mg/dL (8.5-10.1); Potassium 3.7 mmol/L (3.5-5.1)
[2023-02-20] VITALS (44 sets, daily range): BP systolic 124–158; BP diastolic 67–94; PULSE 92–109; RESP 15–31; TEMP 97.9–98.8; O2SAT 96–100
[2023-02-20] MEDS: FREE WATER GT SCH ×6 (02:36→22:17)
[2023-02-20 04:06] LABS: Basophils # (auto) 0 10 ^3/uL (0-0.2); Basophils % (auto) 0.2 % (0.0-2.0); Eosinophils # (auto) 0 10 ^3/uL (0-0.8); Eosinophils % (auto) 0.1 % (0.0-7.0); Hematocrit 34.5 % (41.0-53.0); Hemoglobin 11.4 g/dL (13.5-17.5); Lymphocytes # (auto) 0.6 10 ^3/uL (0.4-5.4); Lymphocytes % (auto) 3.2 % (10.0-50.0); Mean Corpuscular Hemoglobin 32.9 pg (28.0-32.0); Mean Corpuscular Volume 99.7 fL (80.0-100.0); Monocytes # (auto) 1.5 10 ^3/uL (0-1.3); Monocytes % (auto) 8.3 % (0.0-12.0); Neutrophils # (auto) 15.4 10 ^3/uL (1.6-8.6); Neutrophils % (auto) 88.2 % (37.0-80.0); Red Blood Cells 3.46 10^6/uL (4.5-5.90); Red Cell Distribution Width 13.8 % (11.8-14.3); White Blood Cell 17.4 10^3/uL (4.4-10.8)
[2023-02-20 04:22] LABS: Calcium 8.5 mg/dL (8.5-10.1); Magnesium 1.8 mg/dL (1.6-2.6); Potassium 3.5 mmol/L (3.5-5.1)
[2023-02-20 04:27] LABS: Bilirubin, Total 0.4 mg/dL (0.2-1.0); Phosphorus 2.1 mg/dL (2.5-4.90); Total Protein 5.3 g/dL (6.4-8.2)
[2023-02-20] MEDS: IPRATROPIUM BROM 0.5 MG/2.5ML INH SOL NEB SCH ×6 (06:00→23:39)
[2023-02-20] MEDS: ALBUTEROL SULF 2.5 MG/0.5ML(0.5%) NEB SOLN NEB SCH ×6 (06:00→23:39)
[2023-02-20] MEDS: CALCIUM ACETATE 667 MG CAP PEG SCH ×3 (06:35→22:18)
[2023-02-20] MEDS: ACCU-CHEK COMFORT CURVE STRIP VI SCH ×4 (06:36→15:48)
[2023-02-20] MEDS: InsuLIN REG 1unit/0.01ml Soln (100units/ml) SC SCH ×3 (06:37→16:34)
[2023-02-20] MEDS: PANTOPRAZOLE 40 MG/10 ML VIAL INJ IV SCH (07:57)
[2023-02-20] MEDS: AZITHROMYCIN 500MG/ 250ML 250 ML IV SCH (07:57)
[2023-02-20] MEDS: INSULIN LANTUS (GLARGINE) 1 /0.01ml (100units/ml) SC SCH (07:59)
[2023-02-20] MEDS ORDERED: POTASSIUM PHOSPHATE 22 MEQ in SODIUM CHL 0.9% 100 ML IV ONE (09:00)
[2023-02-20] MEDS ORDERED: CLINIMIX PER PHARMACY 0 ML IV SCH (10:00)
[2023-02-20] MEDS: D5W 5% 1,000 ML IV SCH ×2 (10:13→15:48)
[2023-02-20] MEDS ORDERED: DEXTROSE (50%) 50ML SYRG IV SCH (10:30)
[2023-02-20] MEDS: CEFEPIME 1GM/ 50ML 50 ML IV SCH ×2 (10:36→22:17)
[2023-02-20] MEDS: ASPirin 81 mg TAB PO SCH (10:36)
[2023-02-20] MEDS: ENOXAPARIN SOD 30 MG/0.3 ML SYRINGE SC SCH (10:37)
[2023-02-20 14:34] LABS: BUN/Creatinine Ratio 13.6 (10.0-20.0); Calcium 8.7 mg/dL (8.5-10.1)
[2023-02-20 14:49] LABS: Potassium 3.6 mmol/L (3.5-5.1)
[2023-02-20] MEDS ORDERED: LORazepam 2MG/ML-1ML VIAL IV PRN (15:45)
[2023-02-20 16:11] LABS: Cholesterol 100 mg/dL (< 200); HDL Cholesterol 69 mg/dL (40-59); LDL Cholesterol 22 mg/dL (< 100); Triglycerides 49 mg/dL (< 150)
[2023-02-20] MEDS: AMINO ACID INFUSION IN D10W 1,000 ML IV SCH (19:55)
[2023-02-20 22:34] LABS: BUN/Creatinine Ratio 14.5 (10.0-20.0); Calcium 8.3 mg/dL (8.5-10.1); Potassium 3.6 mmol/L (3.5-5.1)
[2023-02-21] VITALS (52 sets, daily range): BP systolic 121–164; BP diastolic 69–102; PULSE 91–109; RESP 17–39; TEMP 97.6–99; O2SAT 98–100
[2023-02-21] MEDS: ACCU-CHEK COMFORT CURVE STRIP VI SCH ×4 (00:44→17:40)
[2023-02-21] MEDS: InsuLIN REG 1unit/0.01ml Soln (100units/ml) SC SCH ×4 (00:45→17:43)
[2023-02-21] MEDS: FREE WATER GT SCH ×6 (02:23→22:00)
[2023-02-21] MEDS: D5W 5% 1,000 ML IV SCH (02:26)
[2023-02-21] MEDS: CALCIUM ACETATE 667 MG CAP PEG SCH ×3 (05:19→21:54)
[2023-02-21] MEDS: ALBUTEROL SULF 2.5 MG/0.5ML(0.5%) NEB SOLN NEB SCH ×5 (06:00→21:30)
[2023-02-21] MEDS: IPRATROPIUM BROM 0.5 MG/2.5ML INH SOL NEB SCH ×5 (06:00→21:30)
[2023-02-21 06:11] LABS: Hemoglobin 11.3 g/dL (13.5-17.5); Mean Corpuscular Hemoglobin 33.1 pg (28.0-32.0); Mean Corpuscular Hgb Conc. 33.3 g/dL (32.0-36.0); Mean Corpuscular Volume 99.5 fL (80.0-100.0); Red Blood Cells 3.42 10^6/uL (4.5-5.90); Red Cell Distribution Width 13.8 % (11.8-14.3); White Blood Cell 8.2 10^3/uL (4.4-10.8)
[2023-02-21 06:14] LABS: Albumin 1.8 g/dL (3.4-5.0); Calcium 7.8 mg/dL (8.5-10.1); Magnesium 1.8 mg/dL (1.6-2.6); Potassium 3.4 mmol/L (3.5-5.1)
[2023-02-21 06:18] LABS: Bilirubin, Total 0.4 mg/dL (0.2-1.0); Total Protein 5.1 g/dL (6.4-8.2)
[2023-02-21 06:32] LABS: Basophils % (manual) 0 (0.0-2.0); Metamyelocytes % 0; Myelocytes % 0; Promyelocytes % 0; Reactive Lymphocytes 0
[2023-02-21 06:33] LABS: Blast Cells 0
[2023-02-21 06:44] LABS: BUN/Creatinine Ratio 14.1 (10.0-20.0)
[2023-02-21 08:25] LABS: Band Neutrophils % (manual) 9; Eosinophils % (manual) 1 (0-7); Lymphocytes % (manual) 10 (10.0-50.0); Monocytes % (manual) 16 (0-12)
[2023-02-21] MEDS: ASPirin 81 mg TAB PO SCH (08:59)
[2023-02-21] MEDS: PANTOPRAZOLE 40 MG/10 ML VIAL INJ IV SCH (08:59)
[2023-02-21] MEDS: AZITHROMYCIN 500MG/ 250ML 250 ML IV SCH (08:59)
[2023-02-21] MEDS: ENOXAPARIN SOD 30 MG/0.3 ML SYRINGE SC SCH (09:01)
[2023-02-21] MEDS: hydrALAZINE HCL 20 MG/ML VL IV PRN (09:03)
[2023-02-21] MEDS: amLODIPine BESYLATE 5 MG TAB PO SCH (09:53)
[2023-02-21] MEDS: INSULIN LANTUS (GLARGINE) 1 /0.01ml (100units/ml) SC SCH (09:55)
[2023-02-21] MEDS ORDERED: POTASSIUM CHL 20MEQ/100ML 100 ML IV ONE (10:45)
[2023-02-21] MEDS: CEFEPIME 1GM/ 50ML 50 ML IV SCH ×2 (10:46→21:53)
[2023-02-21] MEDS ORDERED: MAGNESIUM SULFATE 1GM/100ML 100 ML IV ONE (11:30)
[2023-02-21] MEDS: SOD CHL 0.45% 1,000 ML IV SCH (17:51)
[2023-02-21] MEDS: AMINO ACID INFUSION IN D10W 1,000 ML IV SCH (21:53)
[2023-02-22] VITALS (33 sets, daily range): BP systolic 115–152; BP diastolic 64–81; PULSE 93–106; RESP 12–37; TEMP 98.1–99.3; O2SAT 91–100
[2023-02-22] MEDS: InsuLIN REG 1unit/0.01ml Soln (100units/ml) SC SCH ×4 (01:12→18:00)
[2023-02-22] MEDS: FREE WATER GT SCH ×3 (02:00→10:13)
[2023-02-22 05:49] LABS: Hematocrit 32.4 % (41.0-53.0); Hemoglobin 10.6 g/dL (13.5-17.5); Mean Corpuscular Hemoglobin 32.6 pg (28.0-32.0); Mean Corpuscular Hgb Conc. 32.9 g/dL (32.0-36.0); Mean Corpuscular Volume 99.1 fL (80.0-100.0); Red Blood Cells 3.26 10^6/uL (4.5-5.90); White Blood Cell 6.3 10^3/uL (4.4-10.8)
[2023-02-22 05:51] LABS: Basophils % (manual) 0 (0.0-2.0); Blast Cells 0; Myelocytes % 0; Promyelocytes % 0; Reactive Lymphocytes 0
[2023-02-22] MEDS: ACCU-CHEK COMFORT CURVE STRIP VI SCH ×4 (06:00→18:00)
[2023-02-22 06:07] LABS: Albumin 1.8 g/dL (3.4-5.0); Calcium 7.7 mg/dL (8.5-10.1); Magnesium 1.8 mg/dL (1.6-2.6)
[2023-02-22 06:10] LABS: BUN/Creatinine Ratio 14.5 (10.0-20.0); Bilirubin, Total 0.3 mg/dL (0.2-1.0); Phosphorus 2.2 mg/dL (2.5-4.90); Total Protein 4.4 g/dL (6.4-8.2)
[2023-02-22] MEDS: SOD CHL 0.45% 1,000 ML IV SCH ×3 (06:25→23:45)
[2023-02-22] MEDS: ALBUTEROL SULF 2.5 MG/0.5ML(0.5%) NEB SOLN NEB SCH ×5 (06:28→22:20)
[2023-02-22] MEDS: IPRATROPIUM BROM 0.5 MG/2.5ML INH SOL NEB SCH ×5 (06:28→22:20)
[2023-02-22] MEDS: CALCIUM ACETATE 667 MG CAP PEG SCH ×3 (06:41→22:03)
[2023-02-22 07:32] LABS: Band Neutrophils % (manual) 6; Eosinophils % (manual) 1 (0-7); Lymphocytes % (manual) 9 (10.0-50.0); Metamyelocytes % 1; Monocytes % (manual) 28 (0-12)
[2023-02-22 08:46] LABS: Folate (Folic Acid) 6.24 ng/mL (5.38-24)
[2023-02-22] MEDS ORDERED: POTASSIUM CHL 20MEQ/100ML 100 ML IV ONE ×2 (10:00→10:30)
[2023-02-22] MEDS ORDERED: POTASSIUM PHOSPHATE 26.4 MEQ in SODIUM CHL 0.9% 100 ML IV ONE (10:00)
[2023-02-22] MEDS: INSULIN LANTUS (GLARGINE) 1 /0.01ml (100units/ml) SC SCH (10:00)
[2023-02-22] MEDS: CEFEPIME 1GM/ 50ML 50 ML IV SCH ×2 (10:00→22:03)
[2023-02-22] MEDS: ASPirin 81 mg TAB PO SCH (10:13)
[2023-02-22] MEDS: PANTOPRAZOLE 40 MG/10 ML VIAL INJ IV SCH (10:13)
[2023-02-22] MEDS: amLODIPine BESYLATE 5 MG TAB PO SCH (10:13)
[2023-02-22] MEDS: ENOXAPARIN SOD 30 MG/0.3 ML SYRINGE SC SCH (10:13)
[2023-02-22] MEDS: AZITHROMYCIN 500MG/ 250ML 250 ML IV SCH (10:13)
[2023-02-22] MEDS ORDERED: POTASSIUM EFFERVESENT TAB 25 MEQ PO ONE (11:15)
[2023-02-22] MEDS ORDERED: AMINO ACID INFUSION IN D10W 1,000 ML IV SCH (20:00)
[2023-02-23] VITALS (36 sets, daily range): BP systolic 118–166; BP diastolic 62–90; PULSE 86–103; RESP 15–41; TEMP 98–99.2; O2SAT 9–100
[2023-02-23] MEDS: InsuLIN REG 1unit/0.01ml Soln (100units/ml) SC SCH ×5 (00:04→23:54)
[2023-02-23] MEDS: ACCU-CHEK COMFORT CURVE STRIP VI SCH ×5 (00:05→23:54)
[2023-02-23] MEDS: CALCIUM ACETATE 667 MG CAP PEG SCH ×3 (05:54→22:27)
[2023-02-23] MEDS: IPRATROPIUM BROM 0.5 MG/2.5ML INH SOL NEB SCH ×4 (06:24→22:27)
[2023-02-23] MEDS: ALBUTEROL SULF 2.5 MG/0.5ML(0.5%) NEB SOLN NEB SCH ×4 (06:24→22:27)
[2023-02-23 08:30] LABS: Calcium 8.9 mg/dL (8.5-10.1); Potassium 3.1 mmol/L (3.5-5.1)
[2023-02-23 08:34] LABS: Albumin 1.8 g/dL (3.4-5.0); BUN/Creatinine Ratio 11.9 (10.0-20.0); Bilirubin, Total 0.4 mg/dL (0.2-1.0); Magnesium 1.8 mg/dL (1.6-2.6); Phosphorus 2.6 mg/dL (2.5-4.90); Total Protein 5.8 g/dL (6.4-8.2)
[2023-02-23] MEDS: SOD CHL 0.45% 1,000 ML IV SCH ×2 (09:45→19:45)
[2023-02-23] MEDS: ENOXAPARIN SOD 40 MG/0.4 ML SYRINGE SC SCH ×2 (10:00→10:40)
[2023-02-23] MEDS: INSULIN LANTUS (GLARGINE) 1 /0.01ml (100units/ml) SC SCH (10:00)
[2023-02-23] MEDS ORDERED: LACTULOSE 20Gm/30ML SOLN PO PRN (10:15)
[2023-02-23] MEDS ORDERED: POTASSIUM CHL 20 Meq TABLET PO ONE (10:15)
[2023-02-23] MEDS: LACTULOSE 20Gm/30ML SOLN PO ONE ×2 (10:15→10:40)
[2023-02-23] MEDS: DOCUSATE SOD 100 MG CAP PO ONE ×2 (10:15→10:40)
[2023-02-23] MEDS: ASPirin 81 mg TAB PO SCH (10:40)
[2023-02-23] MEDS: amLODIPine BESYLATE 5 MG TAB PO SCH (10:41)
[2023-02-23] MEDS: PANTOPRAZOLE 40 MG/10 ML VIAL INJ IV SCH (10:42)
[2023-02-23] MEDS: AZITHROMYCIN 500MG/ 250ML 250 ML IV SCH (10:42)
[2023-02-23] MEDS: CEFEPIME 1GM/ 50ML 50 ML IV SCH ×2 (10:42→22:27)
[2023-02-23] MEDS ORDERED: MAGNESIUM SULFATE 1GM/100ML 100 ML IV ONE (10:45)
[2023-02-23] MEDS: POTASSIUM CHL 20MEQ/100ML 100 ML IV SCH ×2 (10:45→12:45)
[2023-02-23] MEDS: DOCUSATE SOD 100 MG CAP PO SCH (22:27)
[2023-02-24] VITALS (25 sets, daily range): BP systolic 117–156; BP diastolic 74–93; PULSE 86–103; RESP 12–35; TEMP 98–98.7; O2SAT 90–100
[2023-02-24] MEDS: SOD CHL 0.45% 1,000 ML IV SCH ×3 (03:08→23:03)
[2023-02-24 05:15] LABS: BUN/Creatinine Ratio 13.4 (10.0-20.0); Calcium 8.8 mg/dL (8.5-10.1); Potassium 3.3 mmol/L (3.5-5.1)
[2023-02-24] MEDS: ACCU-CHEK COMFORT CURVE STRIP VI SCH ×4 (05:32→22:51)
[2023-02-24] MEDS: CALCIUM ACETATE 667 MG CAP PEG SCH ×4 (05:32→21:30)
[2023-02-24] MEDS: InsuLIN REG 1unit/0.01ml Soln (100units/ml) SC SCH ×4 (05:37→22:54)
[2023-02-24] MEDS: IPRATROPIUM BROM 0.5 MG/2.5ML INH SOL NEB SCH ×5 (06:47→22:34)
[2023-02-24] MEDS: ALBUTEROL SULF 2.5 MG/0.5ML(0.5%) NEB SOLN NEB SCH ×5 (06:47→22:34)
[2023-02-24] MEDS ORDERED: MAGNESIUM SULFATE 1GM/100ML 100 ML IV ONE (08:45)
[2023-02-24] MEDS: ENOXAPARIN SOD 40 MG/0.4 ML SYRINGE SC SCH (10:00)
[2023-02-24] MEDS: DOCUSATE SOD 100 MG CAP PO SCH ×2 (10:00→21:33)
[2023-02-24] MEDS: PANTOPRAZOLE 40 MG/10 ML VIAL INJ IV SCH (10:20)
[2023-02-24] MEDS: ASPirin 81 mg TAB PO SCH (10:21)
[2023-02-24] MEDS: amLODIPine BESYLATE 5 MG TAB PO SCH (10:22)
[2023-02-24] MEDS: CEFEPIME 1GM/ 50ML 50 ML IV SCH (10:22)
[2023-02-24] MEDS: AZITHROMYCIN 500MG/ 250ML 250 ML IV SCH (10:23)
[2023-02-24] MEDS: POTASSIUM CHL 20MEQ/100ML 100 ML IV SCH ×2 (10:24→13:55)
[2023-02-24] MEDS: INSULIN LANTUS (GLARGINE) 1 /0.01ml (100units/ml) SC SCH (10:48)
[2023-02-24] MEDS: Glucerna Carbsteady SHAKE Chocolate 8oz PO SCH (18:14)
[2023-02-24] MEDS ORDERED: InsuLIN REG 1unit/0.01ml Soln (100units/ml) ONE (18:58)
[2023-02-25] VITALS (16 sets, daily range): BP systolic 123–158; BP diastolic 7–87; PULSE 60–102; RESP 14–24; TEMP 98–98.7; O2SAT 95–100
[2023-02-25] MEDS: CALCIUM ACETATE 667 MG CAP PEG SCH (05:30)
[2023-02-25] MEDS: hydrALAZINE HCL 20 MG/ML VL IV PRN (05:31)
[2023-02-25] MEDS: ACCU-CHEK COMFORT CURVE STRIP VI SCH ×3 (05:35→19:19)
[2023-02-25] MEDS: InsuLIN REG 1unit/0.01ml Soln (100units/ml) SC SCH ×3 (05:36→19:16)
[2023-02-25] MEDS: ALBUTEROL SULF 2.5 MG/0.5ML(0.5%) NEB SOLN NEB SCH ×5 (05:58→22:27)
[2023-02-25] MEDS: IPRATROPIUM BROM 0.5 MG/2.5ML INH SOL NEB SCH ×5 (05:58→22:27)
[2023-02-25] MEDS: Glucerna Carbsteady SHAKE Chocolate 8oz PO SCH ×3 (08:00→19:30)
[2023-02-25] MEDS: DOCUSATE SOD 100 MG CAP PO SCH ×2 (10:00→23:00)
[2023-02-25] MEDS: PANTOPRAZOLE 40 MG/10 ML VIAL INJ IV SCH (10:15)
[2023-02-25] MEDS: amLODIPine BESYLATE 5 MG TAB PO SCH (10:33)
[2023-02-25] MEDS: ASPirin 81 mg TAB PO SCH (10:33)
[2023-02-25] MEDS: ENOXAPARIN SOD 40 MG/0.4 ML SYRINGE SC SCH (10:34)
[2023-02-25] MEDS: INSULIN LANTUS (GLARGINE) 1 /0.01ml (100units/ml) SC SCH (11:38)
[2023-02-25] MEDS: SOD CHL 0.45% 1,000 ML IV SCH (13:21)
[2023-02-25] MEDS: CALCIUM ACETATE 667 MG CAP PO SCH ×2 (14:45→23:00)
[2023-02-25 15:10] LABS: Potassium 3.2 mmol/L (3.5-5.1)
[2023-02-25 15:12] LABS: BUN/Creatinine Ratio 10.3 (10.0-20.0)
[2023-02-25] MEDS ORDERED: POTASSIUM CHL 20 Meq TABLET PO ONE (18:45)
[2023-02-26] VITALS (14 sets, daily range): BP systolic 123–159; BP diastolic 72–91; PULSE 87–98; RESP 16–22; TEMP 96.9–99.1; O2SAT 93–99
[2023-02-26] MEDS: ACCU-CHEK COMFORT CURVE STRIP VI SCH ×3 (01:32→14:08)
[2023-02-26] MEDS: SOD CHL 0.45% 1,000 ML IV SCH ×2 (04:11→06:11)
[2023-02-26] MEDS: InsuLIN REG 1unit/0.01ml Soln (100units/ml) SC SCH ×3 (06:00→12:00)
[2023-02-26] MEDS: ALBUTEROL SULF 2.5 MG/0.5ML(0.5%) NEB SOLN NEB SCH ×3 (06:26→14:02)
[2023-02-26] MEDS: IPRATROPIUM BROM 0.5 MG/2.5ML INH SOL NEB SCH ×3 (06:27→14:02)
[2023-02-26 07:12] LABS: BUN/Creatinine Ratio 9.7 (10.0-20.0); Calcium 9.4 mg/dL (8.5-10.1); Potassium 3.2 mmol/L (3.5-5.1)
[2023-02-26] MEDS: CALCIUM ACETATE 667 MG CAP PO SCH ×2 (08:19→15:51)
[2023-02-26] MEDS ORDERED: POTASSIUM CHL 20 Meq TABLET PO ONE (08:45)
[2023-02-26] MEDS: ASPirin 81 mg TAB PO SCH (09:33)
[2023-02-26] MEDS: DOCUSATE SOD 100 MG CAP PO SCH (09:33)
[2023-02-26] MEDS: amLODIPine BESYLATE 5 MG TAB PO SCH (09:34)
[2023-02-26] MEDS: ENOXAPARIN SOD 40 MG/0.4 ML SYRINGE SC SCH (09:34)
[2023-02-26] MEDS: INSULIN LANTUS (GLARGINE) 1 /0.01ml (100units/ml) SC SCH (09:43)
[2023-02-26] MEDS: Glucerna Carbsteady SHAKE Chocolate 8oz PO SCH ×2 (09:45→14:08)
[2023-02-26] MEDS: PANTOPRAZOLE 40 MG/10 ML VIAL INJ IV SCH (10:00)
[2023-02-26 12:29] LABS: Basophils # (auto) 0.1 10 ^3/uL (0-0.2); Eosinophils # (auto) 0.1 10 ^3/uL (0-0.8); Hemoglobin 10.1 g/dL (13.5-17.5); Neutrophils # (auto) 3.9 10 ^3/uL (1.6-8.6); Red Cell Distribution Width 13.9 % (11.8-14.3)
[2023-02-26 12:33] LABS: Basophils % (auto) 1.3 % (0.0-2.0); Eosinophils % (auto) 2.2 % (0.0-7.0); Hematocrit 30.7 % (41.0-53.0); Lymphocytes # (auto) 0.9 10 ^3/uL (0.4-5.4); Lymphocytes % (auto) 14.3 % (10.0-50.0); Mean Corpuscular Hemoglobin 32.2 pg (28.0-32.0); Mean Corpuscular Hgb Conc. 32.9 g/dL (32.0-36.0); Mean Corpuscular Volume 97.9 fL (80.0-100.0); Monocytes % (auto) 17.2 % (0.0-12.0); Nucleated Red Blood Cells % 0.1 %; Red Blood Cells 3.14 10^6/uL (4.5-5.90)
== END 2023-02-26 16:32 | DRG 208 ==
LOC: EDBD 18:18 → ER 18:18 → TELE 20:52 → ICU WEST 23:15 → DOU IN ICU 02-20 05:40 → TELE-CENTR 02-24 17:54 → UNDODISIN 02-24 18:00
PROVIDERS: ADMIT Internal Medicine Geriatric Medicine; ATTEND Internal Medicine Geriatric Medicine
PROC: 5A12012 Performance of Cardiac Output, Single, Manual (ICD-10-PCS; 2023-02-16)
PROC: 5A1935Z Respiratory Ventilation, Less than 24 Consecutive Hours (ICD-10-PCS; principal; 2023-02-17)
PROC: 0BH17EZ Insertion of Endotracheal Airway into Trachea, Via Natural or Artificial Opening (ICD-10-PCS; 2023-02-17)
PROC: 4A00X4Z Measurement of Central Nervous Electrical Activity, External Approach (ICD-10-PCS; 2023-02-21)
DX: J96.01 Acute respiratory failure with hypoxia (principal); E11.11 Type 2 diabetes mellitus with ketoacidosis with coma; G93.41 Metabolic encephalopathy; I46.9 Cardiac arrest, cause unspecified; R65.11 Systemic inflammatory response syndrome (SIRS) of non-infectious origin with acute organ dysfunction; E44.0 Moderate protein-calorie malnutrition; E87.0 Hyperosmolality and hypernatremia; R57.9 Shock, unspecified; G93.1 Anoxic brain damage, not elsewhere classified; N17.9 Acute kidney failure, unspecified; N18.30 Chronic kidney disease, stage 3 unspecified; E86.0 Dehydration; E11.22 Type 2 diabetes mellitus with diabetic chronic kidney disease; Z20.822 Contact with and (suspected) exposure to COVID-19; E87.5 Hyperkalemia; D63.1 Anemia in chronic kidney disease; E83.39 Other disorders of phosphorus metabolism; E83.42 Hypomagnesemia; E87.6 Hypokalemia; Z82.49 Family history of ischemic heart disease and other diseases of the circulatory system; Z79.899 Other long term (current) drug therapy; Z79.82 Long term (current) use of aspirin; Z83.3 Family history of diabetes mellitus; Z91.199 Patient's noncompliance with other medical treatment and regimen due to unspecified reason; Z90.49 Acquired absence of other specified parts of digestive tract; Z68.25 Body mass index [BMI] 25.0-25.9, adult
CPT/HCPCS: 36415; 36600; 70450; 70551; 71045; 76775; 80048; 80053; 80061; 81001; 82010; 82140; 82306; 82570; 82607; 82746; 82805; 82962; 83605; 83735; 83880; 83930; 83970; 84100; 84156; 84300; 84311; 84443; 84478; 84484; 85007; 85025; 85027; 87040; 87070; 87077; 87081; 87086; 87205; 87426; 92507; 92610; 92950; 93005; 93306; 93886; 94002; 94003; 94640; 95819; 97110; 97116; 97163; 97530; 99291; C9113; G0378; J0696; J1815; J2250; J2704; J3480; J7042

== ENCOUNTER 2023-05-16 06:57 | Inpatient (IN) | payer OTHER, MEDICAID ==
[~2023-05-16] VITALS: Ht 190.5 cm; Wt 74.8 kg
[2023-05-16] VITALS (50 sets, daily range): BP systolic 99–132; BP diastolic 55–71; PULSE 97–109; RESP 11–34; TEMP 96.3–98.8; O2SAT 96–100
[2023-05-16] MEDS ORDERED: SODIUM CHLORIDE 0.9% 3,000 ML IV ONE (07:00)
[2023-05-16] MEDS ORDERED: SODIUM BICARBONATE 8.4 % INJ 50ML VIAL IV ONE ×2 (07:00→09:00)
[2023-05-16] MEDS ORDERED: InsuLIN REG 1unit/0.01ml Soln (100units/ml) IV ONE (07:00)
[2023-05-16] MEDS ORDERED: InsuLIN REG 1unit/0.01ml Soln (100units/ml) ONE (07:04)
[2023-05-16] MEDS ORDERED: SODIUM CHLORIDE 0.9% 1,000 ML IVB ONE (07:30)
[2023-05-16] MEDS ORDERED: INSULIN LANTUS (GLARGINE) 1 /0.01ml (100units/ml) SC ONE (07:30)
[2023-05-16] MEDS ORDERED: SODIUM CHLORIDE 0.9% 1,000 ML IV ONE (07:30)
[2023-05-16] MEDS ORDERED: INSULIN DRIP 100 UNIT/100ML 100 ML IV SCH ×2 (07:30→11:45)
[2023-05-16] MEDS ORDERED: DEXTROSE (50%) 50ML SYRG IV PRN (07:30)
[2023-05-16] MEDS ORDERED: ADENOSINE 6 MG/2 ML INJ IV ONE (07:45)
[2023-05-16 07:49] LABS: Hematocrit 35.5 % (41.0-53.0); Hemoglobin 10.5 g/dL (13.5-17.5); Mean Corpuscular Hgb Conc. 29.6 g/dL (32.0-36.0); Red Blood Cells 3.62 10^6/uL (4.5-5.90); Red Cell Distribution Width 15.1 % (11.8-14.3); White Blood Cell 18.3 10^3/uL (4.4-10.8)
[2023-05-16] MEDS ORDERED: AMIODARONE BOLUS KIT 0 ML IV ONE (07:51)
[2023-05-16] MEDS ORDERED: AMIODARONE HCL (50 MG/ ML) 3 ML VIAL IV ONE (07:51)
[2023-05-16] MEDS ORDERED: dilTIAZem 25 MG/5 ML VIAL IV ONE ×2 (07:54→08:00)
[2023-05-16] MEDS ORDERED: dilTIAZem 125mg/125ml BAG KIT 0 ML IV ONE (07:54)
[2023-05-16] MEDS: dilTIAZem 125mg/125ml BAG KIT 125 ML IV ONE ×2 (08:02→08:52)
[2023-05-16 08:06] LABS: INR 1.24 (0.9-1.15); Partial Thromboplastin Time 26.5 SEC (24.5-34.5); Prothrombin Time 12.8 sec (9.3-11.8)
[2023-05-16 08:07] LABS: Basophils % (manual) 0 (0.0-2.0); Blast Cells 0; Eosinophils % (manual) 0 (0-7); Myelocytes % 0; Promyelocytes % 0; Reactive Lymphocytes 0
[2023-05-16 08:12] LABS: Lactic Acid w/Reflex 9.6 mmol/L (0.4-2.0)
[2023-05-16 08:13] LABS: Albumin 3.2 g/dL (3.2-4.8); Alkaline Phosphatase 83 U/L (46-116); Aspartate Aminotransferase 16 U/L (13-40); BUN/Creatinine Ratio 10.4 (10.0-20.0); Blood Urea Nitrogen 28 mg/dL (9-23); Calcium 8.7 mg/dL (8.5-10.1); Chloride 94 mmol/L (98-107); Potassium 5.4 mmol/L (3.5-5.1); Sodium 138 mmol/L (136-145); Total Protein 5.4 g/dL (5.7-8.2)
[2023-05-16] MEDS: ACCU-CHEK COMFORT CURVE STRIP VI SCH ×11 (08:20→22:36)
[2023-05-16 08:32] LABS: Carbon Dioxide < 10 mmol/L (20-30)
[2023-05-16 08:33] LABS: Alanine Aminotransferase < 9 U/L (7-40); Glucose 778 mg/dL (74-106)
[2023-05-16 08:41] LABS: Urine Bacteria FEW /hpf (None Seen); Urine Blood Negative /uL (Negative); Urine Clarity Clear (Clear); Urine Color Yellow (Yellow); Urine Hyaline Cast FEW /lpf (0 - 2); Urine Protein, UAD 1+ (Negative); Urine Specific Gravity 1.015 (1.001-1.035); Urine Urobilinogen Normal (Negative); Urine WBC 1 /hpf (0 - 3)
[2023-05-16 08:48] LABS: Amphetamine Screen, Urine Neg (NEGATIVE); Barbiturate Scree,Urine Neg (NEGATIVE); Benzodiazephine Screen, Urine Neg (NEGATIVE); Cannabinoid Screen, Urine Neg (NEGATIVE); Cocaine Screen, Urine Neg (NEGATIVE); Opiate Scree,Urine Neg (NEGATIVE); Phencyclidine Screen, Urine Neg (NEGATIVE)
[2023-05-16 08:59] LABS: Bilirubin, Total 0.2 mg/dL (0.2-1.0)
[2023-05-16 09:00] LABS: Blood Alcohol < 3.0 mg/dL (<10)
[2023-05-16 09:31] LABS: Anisocytosis Slight; Band Neutrophils % (manual) 8; Lymphocytes % (manual) 14 (10.0-50.0); Metamyelocytes % 3; Monocytes % (manual) 2 (0-12)
[2023-05-16 09:32] LABS: Hypochromia Slight; Platelet Estimate Adequate
[2023-05-16] MEDS ORDERED: PIPERACILLIN-TAZOB 3.375GM 100 ML IV ONE (10:00)
[2023-05-16] MEDS ORDERED: AZITHROMYCIN 500MG/ 250ML 250 ML IV ONE (10:00)
[2023-05-16] MEDS ORDERED: VANCOMYCIN PER PHARMACY 0 MG IV SCH (10:15)
[2023-05-16] MEDS ORDERED: PANTOPRAZOLE 40 MG/10 ML VIAL INJ IV ONE (10:15)
[2023-05-16] MEDS: dilTIAZem 125mg/125ml BAG KIT 125 ML IV SCH (10:15)
[2023-05-16] MEDS ORDERED: MORPHINE SULFATE INJ 2 MG/ml SYRG IV PRN (10:30)
[2023-05-16] MEDS ORDERED: NITROGLYCERIN 0.4 MG SL TAB SL PRN (10:30)
[2023-05-16] MEDS ORDERED: VANCOMYCIN 1GM/250ML 250 ML IV ONE (10:30)
[2023-05-16] MEDS ORDERED: ACETAMINOPHEN 325 MG TAB PO PRN (10:30)
[2023-05-16] MEDS: NOREPINEPHRINE 8 MG/250ML KIT 250 ML IV SCH (10:30)
[2023-05-16] MEDS: VASOPRESSIN 20 UNITS in SODIUM CHL 0.9% 99 ML IV SCH ×2 (10:30→21:09)
[2023-05-16 10:31] LABS: Triglycerides 134 mg/dL (< 150)
[2023-05-16 10:32] LABS: LDL Cholesterol 103 mg/dL (< 100)
[2023-05-16 10:33] LABS: Cholesterol 167 mg/dL (< 200); HDL Cholesterol 40 mg/dL (40-59)
[2023-05-16] MEDS: SODIUM CHLORIDE 0.9% 1,000 ML IV SCH ×3 (10:34→22:36)
[2023-05-16] MEDS: CEFEPIME 1GM/ 50ML 50 ML IV SCH (10:51)
[2023-05-16 11:03] LABS: Magnesium 2.2 mg/dL (1.6-2.6)
[2023-05-16 11:04] LABS: Phosphorus 12.6 mg/dL (2.4-5.1)
[2023-05-16] MEDS: SUCRALFATE 1 GM/10 ML ORAL SUSP PO SCH ×3 (12:00→21:09)
[2023-05-16 14:25] LABS: Chloride 104 mmol/L (98-107); Sodium 141 mmol/L (136-145)
[2023-05-16 14:26] LABS: Anion Gap 23 (5-15); Calcium 8.3 mg/dL (8.5-10.1); Carbon Dioxide 14 mmol/L (20-30)
[2023-05-16 14:31] LABS: BUN/Creatinine Ratio 16.3 (10.0-20.0); Blood Urea Nitrogen 37 mg/dL (9-23)
[2023-05-16 14:37] LABS: Potassium 3.3 mmol/L (3.5-5.1)
[2023-05-16 14:38] LABS: Glucose 576 mg/dL (74-106)
[2023-05-16] MEDS: INSULIN DRIP IV SCH ×2 (14:52→22:39)
[2023-05-16] MEDS: HEPARIN SODIUM (PORCINE) 5000 UNITS/ML 1ML VIAL SC SCH ×2 (15:00→21:10)
[2023-05-16 19:10] LABS: Lactic Acid w/Reflex 2.1 mmol/L (0.4-2.0)
[2023-05-16] MEDS ORDERED: POTASSIUM EFFERVESENT TAB 25 MEQ PO ONE (19:30)
[2023-05-16] MEDS: LACTULOSE 20Gm/30ML SOLN PO SCH (21:09)
[2023-05-17] VITALS (93 sets, daily range): BP systolic 91–169; BP diastolic 52–102; PULSE 85–106; RESP 8–38; TEMP 97.7–99; O2SAT 94–100
[2023-05-17] MEDS: ACCU-CHEK COMFORT CURVE STRIP VI SCH ×10 (00:02→21:35)
[2023-05-17 01:17] LABS: Lactic Acid w/Reflex 3.1 mmol/L (0.4-2.0)
[2023-05-17] MEDS ORDERED: INSULIN DRIP 100 UNIT/100ML 100 ML IV SCH (01:45)
[2023-05-17] MEDS ORDERED: DEXTROSE (50%) 50ML SYRG IV PRN ×2 (01:45→10:15)
[2023-05-17] MEDS ORDERED: ACCU-CHEK COMFORT CURVE STRIP VI SCH (03:00)
[2023-05-17] MEDS: INSULIN DRIP 100 UNIT/100ML 100 ML IV SCH ×2 (03:30→06:10)
[2023-05-17 04:30] LABS: Basophils # (auto) 0 10 ^3/uL (0-0.2); Basophils % (auto) 0.2 % (0.0-2.0); Eosinophils # (auto) 0 10 ^3/uL (0-0.8); Hemoglobin 10.2 g/dL (13.5-17.5); Lymphocytes # (auto) 0.9 10 ^3/uL (0.4-5.4); Lymphocytes % (auto) 5.7 % (10.0-50.0); Mean Corpuscular Hemoglobin 28.9 pg (28.0-32.0); Mean Corpuscular Volume 87.6 fL (80.0-100.0); Monocytes # (auto) 1.7 10 ^3/uL (0-1.3); Monocytes % (auto) 11.2 % (0.0-12.0); Neutrophils # (auto) 12.7 10 ^3/uL (1.6-8.6); Neutrophils % (auto) 82.9 % (37.0-80.0); Nucleated Red Blood Cells % 0.1 %; Red Blood Cells 3.54 10^6/uL (4.5-5.90); Red Cell Distribution Width 13.6 % (11.8-14.3); White Blood Cell 15.4 10^3/uL (4.4-10.8)
[2023-05-17 04:45] LABS: Alanine Aminotransferase 12 U/L (7-40); Albumin 3.4 g/dL (3.2-4.8); Alkaline Phosphatase 81 U/L (46-116); Anion Gap 12 (5-15); Aspartate Aminotransferase 17 U/L (13-40); BUN/Creatinine Ratio 16.8 (10.0-20.0); Bilirubin, Total 0.3 mg/dL (0.2-1.0); Calcium 8.9 mg/dL (8.7-10.4); Carbon Dioxide 22 mmol/L (20-30); Chloride 111 mmol/L (98-107); Glucose 89 mg/dL (74-106); Potassium 3.6 mmol/L (3.5-5.1); Sodium 145 mmol/L (136-145); Total Protein 5.6 g/dL (5.7-8.2)
[2023-05-17 04:59] LABS: Blood Urea Nitrogen 26 mg/dL (9-23)
[2023-05-17] MEDS: SODIUM CHLORIDE 0.9% 1,000 ML IV SCH (06:06)
[2023-05-17] MEDS: LACTULOSE 20Gm/30ML SOLN PO SCH ×3 (06:06→21:33)
[2023-05-17] MEDS: SUCRALFATE 1 GM/10 ML ORAL SUSP PO SCH ×4 (06:06→21:33)
[2023-05-17] MEDS: HEPARIN SODIUM (PORCINE) 5000 UNITS/ML 1ML VIAL SC SCH ×3 (06:08→21:37)
[2023-05-17] MEDS: VASOPRESSIN 20 UNITS in SODIUM CHL 0.9% 99 ML IV SCH (07:48)
[2023-05-17] MEDS: CEFEPIME 1GM/ 50ML 50 ML IV SCH ×2 (09:15→21:33)
[2023-05-17] MEDS: PANTOPRAZOLE 40 MG/10 ML VIAL INJ IV SCH (09:15)
[2023-05-17] MEDS: INSULIN LANTUS (GLARGINE) 1 /0.01ml (100units/ml) SC SCH (09:18)
[2023-05-17] MEDS: NOREPINEPHRINE 8 MG/250ML KIT 250 ML IV SCH (09:19)
[2023-05-17] MEDS: dilTIAZem 125mg/125ml BAG KIT 125 ML IV SCH (09:19)
[2023-05-17] MEDS ORDERED: SODIUM CHLORIDE 0.9% 1,000 ML IV SCH (10:15)
[2023-05-17] MEDS ORDERED: CEFEPIME 1GM/ 50ML 50 ML IV SCH (10:15)
[2023-05-17] MEDS ORDERED: VANCOMYCIN 1GM/250ML 250 ML IV ONE (11:00)
[2023-05-17] MEDS: SOD CHL 0.45% 1,000 ML IV SCH ×2 (13:05→21:33)
[2023-05-17] MEDS: InsuLIN REG 1unit/0.01ml Soln (100units/ml) SC SCH ×3 (13:24→21:37)
[2023-05-18] VITALS (47 sets, daily range): BP systolic 123–167; BP diastolic 67–99; PULSE 83–110; RESP 9–25; TEMP 98–99; O2SAT 93–99
[2023-05-18 04:25] LABS: Basophils # (auto) 0 10 ^3/uL (0-0.2); Basophils % (auto) 0.2 % (0.0-2.0); Eosinophils # (auto) 0 10 ^3/uL (0-0.8); Eosinophils % (auto) 0.3 % (0.0-7.0); Hematocrit 29.3 % (41.0-53.0); Hemoglobin 9.9 g/dL (13.5-17.5); Lymphocytes # (auto) 1.3 10 ^3/uL (0.4-5.4); Lymphocytes % (auto) 12.1 % (10.0-50.0); Mean Corpuscular Hemoglobin 29.3 pg (28.0-32.0); Mean Corpuscular Hgb Conc. 33.9 g/dL (32.0-36.0); Mean Corpuscular Volume 86.3 fL (80.0-100.0); Monocytes # (auto) 0.9 10 ^3/uL (0-1.3); Neutrophils # (auto) 8.5 10 ^3/uL (1.6-8.6); Neutrophils % (auto) 79.4 % (37.0-80.0); Nucleated Red Blood Cells % 0.1 %; Red Cell Distribution Width 13.9 % (11.8-14.3); White Blood Cell 10.7 10^3/uL (4.4-10.8)
[2023-05-18 04:47] LABS: Albumin 3.2 g/dL (3.2-4.8); Alkaline Phosphatase 84 U/L (46-116); Anion Gap 9 (5-15); Aspartate Aminotransferase 13 U/L (13-40); BUN/Creatinine Ratio 9.7 (10.0-20.0); Blood Urea Nitrogen 12 mg/dL (9-23); Calcium 8.6 mg/dL (8.7-10.4); Carbon Dioxide 25 mmol/L (20-30); Chloride 107 mmol/L (98-107); Glucose 137 mg/dL (74-106); Magnesium 1.6 mg/dL (1.6-2.6); Sodium 141 mmol/L (136-145)
[2023-05-18 04:48] LABS: Bilirubin, Total 0.3 mg/dL (0.2-1.0); Total Protein 5.3 g/dL (5.7-8.2)
[2023-05-18 04:53] LABS: Alanine Aminotransferase < 9 U/L (7-40)
[2023-05-18] MEDS ORDERED: POTASSIUM EFFERVESENT TAB 25 MEQ PO ONE (05:30)
[2023-05-18] MEDS: ACCU-CHEK COMFORT CURVE STRIP VI SCH ×4 (06:32→22:08)
[2023-05-18] MEDS: LACTULOSE 20Gm/30ML SOLN PO SCH ×2 (06:36→12:10)
[2023-05-18] MEDS: SUCRALFATE 1 GM/10 ML ORAL SUSP PO SCH ×4 (06:36→22:18)
[2023-05-18] MEDS: HEPARIN SODIUM (PORCINE) 5000 UNITS/ML 1ML VIAL SC SCH ×3 (06:36→22:10)
[2023-05-18] MEDS: InsuLIN REG 1unit/0.01ml Soln (100units/ml) SC SCH ×4 (06:36→22:10)
[2023-05-18] MEDS: hydrALAZINE HCL 20 MG/ML VL IV SCH ×2 (06:37)
[2023-05-18] MEDS: SOD CHL 0.45% 1,000 ML IV SCH ×2 (06:37→09:12)
[2023-05-18] MEDS ORDERED: hydrALAZINE HCL 20 MG/ML VL IV PRN (07:30)
[2023-05-18] MEDS ORDERED: POTASSIUM CHL 20 Meq TABLET PO ONE (08:30)
[2023-05-18] MEDS: PANTOPRAZOLE 40 MG/10 ML VIAL INJ IV SCH (10:02)
[2023-05-18] MEDS: MAGNESIUM OXIDE 400 MG TAB PO SCH ×2 (10:03→22:18)
[2023-05-18] MEDS: CEFEPIME 1GM/ 50ML 50 ML IV SCH ×2 (10:03→22:18)
[2023-05-18] MEDS: INSULIN LANTUS (GLARGINE) 1 /0.01ml (100units/ml) SC SCH (10:06)
[2023-05-18] MEDS: VANCOMYCIN 1GM/250ML 250 ML IV SCH (13:49)
[2023-05-18] MEDS ORDERED: POTASSIUM EFFERVESENT TAB 25 MEQ GT ONE (15:30)
[2023-05-19] VITALS (7 sets, daily range): BP systolic 126–146; BP diastolic 86–89; PULSE 82–94; RESP 16–84; TEMP 97.8–98.4; O2SAT 94–100
[2023-05-19] MEDS: VANCOMYCIN 1GM/250ML 250 ML IV SCH (02:10)
[2023-05-19] MEDS: HEPARIN SODIUM (PORCINE) 5000 UNITS/ML 1ML VIAL SC SCH ×3 (06:00→21:52)
[2023-05-19] MEDS: SUCRALFATE 1 GM/10 ML ORAL SUSP PO SCH ×4 (06:00→21:52)
[2023-05-19] MEDS: InsuLIN REG 1unit/0.01ml Soln (100units/ml) SC SCH ×4 (06:49→21:53)
[2023-05-19] MEDS: ACCU-CHEK COMFORT CURVE STRIP VI SCH ×4 (06:49→21:55)
[2023-05-19 07:06] LABS: Chloride 104 mmol/L (98-107); Potassium 3.3 mmol/L (3.5-5.1); Sodium 140 mmol/L (136-145)
[2023-05-19 07:08] LABS: Anion Gap 6 (5-15); Carbon Dioxide 30 mmol/L (20-30)
[2023-05-19 07:13] LABS: BUN/Creatinine Ratio 7.5 (10.0-20.0); Basophils # (auto) 0 10 ^3/uL (0-0.2); Basophils % (auto) 0.3 % (0.0-2.0); Blood Urea Nitrogen 7 mg/dL (9-23); Eosinophils # (auto) 0 10 ^3/uL (0-0.8); Eosinophils % (auto) 0.7 % (0.0-7.0); Glucose 131 mg/dL (74-106); Hematocrit 33.3 % (41.0-53.0); Hemoglobin 11.1 g/dL (13.5-17.5); Lymphocytes # (auto) 1.4 10 ^3/uL (0.4-5.4); Lymphocytes % (auto) 25.8 % (10.0-50.0); Mean Corpuscular Hgb Conc. 33.4 g/dL (32.0-36.0); Mean Corpuscular Volume 86.7 fL (80.0-100.0); Monocytes # (auto) 0.5 10 ^3/uL (0-1.3); Monocytes % (auto) 9.5 % (0.0-12.0); Neutrophils # (auto) 3.4 10 ^3/uL (1.6-8.6); Neutrophils % (auto) 63.7 % (37.0-80.0); Nucleated Red Blood Cells % 0.2 %; Red Blood Cells 3.85 10^6/uL (4.5-5.90); White Blood Cell 5.3 10^3/uL (4.4-10.8)
[2023-05-19 07:14] LABS: Magnesium 1.7 mg/dL (1.6-2.6)
[2023-05-19] MEDS: PANTOPRAZOLE 40 MG/10 ML VIAL INJ IV SCH (10:07)
[2023-05-19] MEDS: MAGNESIUM OXIDE 400 MG TAB PO SCH ×2 (10:08→21:52)
[2023-05-19] MEDS: CEFEPIME 1GM/ 50ML 50 ML IV SCH (10:08)
[2023-05-19] MEDS: INSULIN LANTUS (GLARGINE) 1 /0.01ml (100units/ml) SC SCH (10:16)
[2023-05-19] MEDS ORDERED: POTASSIUM CHL 20 Meq TABLET PO ONE (14:30)
[2023-05-19] MEDS: metFORMIN HYDROCHLORIDE 500 MG TAB PO SCH (18:38)
[2023-05-19] MEDS ORDERED: INSULIN LANTUS (GLARGINE) 1 /0.01ml (100units/ml) SC SCH (22:00)
[2023-05-20] VITALS (8 sets, daily range): BP systolic 120–148; BP diastolic 74–97; PULSE 82–92; RESP 16–20; TEMP 97.5–98.2; O2SAT 94–100
[2023-05-20] MEDS: SUCRALFATE 1 GM/10 ML ORAL SUSP PO SCH ×4 (06:04→22:18)
[2023-05-20] MEDS: HEPARIN SODIUM (PORCINE) 5000 UNITS/ML 1ML VIAL SC SCH ×2 (06:04→14:46)
[2023-05-20] MEDS: ACCU-CHEK COMFORT CURVE STRIP VI SCH ×4 (06:05→22:18)
[2023-05-20 06:43] LABS: Calcium 9.4 mg/dL (8.7-10.4); Chloride 103 mmol/L (98-107); Potassium 3.6 mmol/L (3.5-5.1); Sodium 140 mmol/L (136-145)
[2023-05-20 06:44] LABS: Anion Gap 7 (5-15); Carbon Dioxide 30 mmol/L (20-30)
[2023-05-20 06:49] LABS: BUN/Creatinine Ratio 9.7 (10.0-20.0); Blood Urea Nitrogen 9 mg/dL (9-23)
[2023-05-20 06:50] LABS: Magnesium 1.8 mg/dL (1.6-2.6)
[2023-05-20] MEDS: InsuLIN REG 1unit/0.01ml Soln (100units/ml) SC SCH ×4 (06:55→22:40)
[2023-05-20 07:05] LABS: Glucose 45 mg/dL (74-106)
[2023-05-20 08:47] LABS: INR 1.04 (0.9-1.15); Partial Thromboplastin Time 35.2 SEC (24.5-34.5); Prothrombin Time 10.9 sec (9.3-11.8)
[2023-05-20] MEDS: PANTOPRAZOLE 40 MG/10 ML VIAL INJ IV SCH (09:58)
[2023-05-20] MEDS: MAGNESIUM OXIDE 400 MG TAB PO SCH ×2 (09:58→22:18)
[2023-05-20] MEDS: INSULIN LANTUS (GLARGINE) 1 /0.01ml (100units/ml) SC SCH ×2 (10:00→22:41)
[2023-05-20] MEDS: metFORMIN HYDROCHLORIDE 500 MG TAB PO SCH ×2 (10:13→17:55)
== END 2023-05-20 23:40 | disposition home or self-care (01) | DRG 871 ==
LOC: EDBD 06:57 → ER 06:57 → EDSEX 06:57 → TELE 10:21 → ICU WEST 10:21 → UNDOADMIN 10:21 → TELE-WESTW 05-18 16:17
PROVIDERS: ADMIT Nurse Practitioner Family; ATTEND Internal Medicine Geriatric Medicine
PROC: 02HV33Z Insertion of Infusion Device into Superior Vena Cava, Percutaneous Approach (ICD-10-PCS; principal; 2023-05-16)
PROC: 4A143B0 Monitoring of Venous Pressure, Central, Percutaneous Approach (ICD-10-PCS; 2023-05-16)
DX: A41.9 Sepsis, unspecified organism (principal); E11.10 Type 2 diabetes mellitus with ketoacidosis without coma; G93.41 Metabolic encephalopathy; N17.0 Acute kidney failure with tubular necrosis; R65.21 Severe sepsis with septic shock; I47.10 Supraventricular tachycardia, unspecified; D63.1 Anemia in chronic kidney disease; E86.0 Dehydration; M54.2 Cervicalgia; M54.9 Dorsalgia, unspecified; R68.0 Hypothermia, not associated with low environmental temperature; E87.5 Hyperkalemia; K21.9 Gastro-esophageal reflux disease without esophagitis; E11.22 Type 2 diabetes mellitus with diabetic chronic kidney disease; N18.9 Chronic kidney disease, unspecified; Z79.4 Long term (current) use of insulin; Z82.49 Family history of ischemic heart disease and other diseases of the circulatory system; Z83.3 Family history of diabetes mellitus; Z91.199 Patient's noncompliance with other medical treatment and regimen due to unspecified reason
CPT/HCPCS: 36415; 70450; 71045; 72125; 76775; 80048; 80053; 80061; 80202; 80307; 80320; 81001; 82010; 82140; 82306; 82962; 83036; 83605; 83735; 83880; 83930; 83970; 84100; 84132; 84443; 84484; 85007; 85025; 85027; 85610; 85730; 87040; 87077; 87081; 87186; 93005; 93306; 96365; 96375; 97110; 97116; 97163; 97530; 99291; C9113; G0378; J1815; J2543

== ENCOUNTER 2023-05-28 15:08 | Inpatient (IN) | payer OTHER, MEDICAID ==
[2023-05-28] VITALS (12 sets, daily range): BP systolic 84–104; BP diastolic 42–72; PULSE 107–128; RESP 20–38; TEMP 97.7; O2SAT 93–100
[~2023-05-28] VITALS: Ht 182.9 cm; Wt 76.3 kg
[2023-05-28] MEDS ORDERED: SODIUM CHLORIDE 0.9% 2,450 ML IV ONE ×2 (15:45→19:30)
[2023-05-28 16:51] LABS: INR 1.25 (0.9-1.15); Partial Thromboplastin Time 29.8 SEC (24.5-34.5); Prothrombin Time 12.9 sec (9.3-11.8)
[2023-05-28 16:52] LABS: Lactic Acid w/Reflex 6.3 mmol/L (0.4-2.0)
[2023-05-28] MEDS ORDERED: SODIUM BICARBONATE 8.4% INJ 50ML SYRINGE ONE (17:17)
[2023-05-28] MEDS ORDERED: SODIUM BICARBONATE 8.4 % INJ 50ML VIAL IV ONE ×2 (17:45→22:30)
[2023-05-28 17:57] LABS: Hemoglobin 10.1 g/dL (13.5-17.5); Mean Corpuscular Hgb Conc. 25.9 g/dL (32.0-36.0)
[2023-05-28 17:59] LABS: Hematocrit 38.7 % (41.0-53.0); Mean Corpuscular Hemoglobin 27.9 pg (28.0-32.0); Mean Corpuscular Volume 107.6 fL (80.0-100.0); Red Cell Distribution Width 16.3 % (11.8-14.3)
[2023-05-28 18:57] LABS: White Blood Cell 30.2 10^3/uL (4.4-10.8)
[2023-05-28 18:59] LABS: Basophils % (manual) 0 (0.0-2.0); Blast Cells 0; Eosinophils % (manual) 0 (0-7); Metamyelocytes % 0; Myelocytes % 0; Promyelocytes % 0; Reactive Lymphocytes 0
[2023-05-28] MEDS ORDERED: ROCURONIUM 10MG/ML 10ML VIAL IV ONE (19:00)
[2023-05-28] MEDS ORDERED: NOREPINEPHRINE 8 MG/250ML KIT 250 ML IV SCH (19:00)
[2023-05-28] MEDS ORDERED: ETOMIDATE (2MG/ML) 20ML VIAL IV ONE (19:00)
[2023-05-28] MEDS ORDERED: ALBUMIN 5% 250 ML IV ONE (19:00)
[2023-05-28 19:02] LABS: Eosinophils # (auto) 0.2 10 ^3/uL (0-0.8); Eosinophils % (auto) 0.6 % (0.0-7.0); Hemoglobin 10.1 g/dL (13.5-17.5); Lymphocytes # (auto) 1.4 10 ^3/uL (0.4-5.4); Lymphocytes % (auto) 5.3 % (10.0-50.0); Neutrophils # (auto) 24.3 10 ^3/uL (1.6-8.6)
[2023-05-28 19:04] LABS: Basophils # (auto) 0.1 10 ^3/uL (0-0.2); Basophils % (auto) 0.3 % (0.0-2.0); Mean Corpuscular Hemoglobin 28.8 pg (28.0-32.0); Mean Corpuscular Hgb Conc. 27.3 g/dL (32.0-36.0); Mean Corpuscular Volume 105.4 fL (80.0-100.0); Monocytes # (auto) 1.1 10 ^3/uL (0-1.3); Neutrophils % (auto) 89.8 % (37.0-80.0); Red Blood Cells 3.51 10^6/uL (4.5-5.90); Red Cell Distribution Width 16.1 % (11.8-14.3); White Blood Cell 27.1 10^3/uL (4.4-10.8)
[2023-05-28 19:06] LABS: Chloride 93 mmol/L (98-107); Sodium 130 mmol/L (136-145)
[2023-05-28 19:07] LABS: Band Neutrophils % (manual) 10; Lymphocytes % (manual) 6 (10.0-50.0); Macrocytosis Slight; Monocytes % (manual) 2 (0-12); Platelet Estimate Adequate
[2023-05-28 19:09] LABS: Anion Gap 27.00001 (5-15); Calcium 8.3 mg/dL (8.5-10.1)
[2023-05-28 19:14] LABS: Blood Urea Nitrogen 32 mg/dL (9-23)
[2023-05-28 19:15] LABS: Alkaline Phosphatase 172 U/L (46-116); Blood Alcohol 4.1 mg/dL (<10)
[2023-05-28 19:16] LABS: Alanine Aminotransferase 13 U/L (7-40); Albumin 3.5 g/dL (3.2-4.8); Aspartate Aminotransferase 17 U/L (13-40); Bilirubin, Total 0.2 mg/dL (0.2-1.0); Creatine Kinase IFCC 30 U/L (46-171)
[2023-05-28 19:17] LABS: Total Protein 5.8 g/dL (5.7-8.2)
[2023-05-28 19:17] LABS: INR 1.14 (0.9-1.15); Partial Thromboplastin Time 31.7 SEC (24.5-34.5); Prothrombin Time 11.9 sec (9.3-11.8)
[2023-05-28 19:19] LABS: Potassium 7.6 mmol/L (3.5-5.1)
[2023-05-28 19:20] LABS: Carbon Dioxide < 10 mmol/L (20-30); Glucose 1098 mg/dL (74-106)
[2023-05-28 19:21] LABS: Alanine Aminotransferase 13 U/L (7-40); Albumin 3.6 g/dL (3.2-4.8); Alkaline Phosphatase 188 U/L (46-116); Anion Gap 26.00001 (5-15); Aspartate Aminotransferase 19 U/L (13-40); BUN/Creatinine Ratio 10.6 (10.0-20.0); Blood Urea Nitrogen 33 mg/dL (9-23); Calcium 8.3 mg/dL (8.7-10.4); Chloride 94 mmol/L (98-107); Sodium 130 mmol/L (136-145)
[2023-05-28 19:22] LABS: Bilirubin, Total 0.2 mg/dL (0.2-1.0); Total Protein 5.9 g/dL (5.7-8.2)
[2023-05-28 19:23] LABS: Magnesium 2.4 mg/dL (1.6-2.6)
[2023-05-28] MEDS: ACCU-CHEK COMFORT CURVE STRIP VI SCH ×3 (19:30→23:14)
[2023-05-28] MEDS ORDERED: DEXTROSE (50%) 50ML SYRG IV PRN (19:30)
[2023-05-28] MEDS ORDERED: ALBUMIN 25% 100 ML IV ONE (19:30)
[2023-05-28] MEDS ORDERED: VANCOMYCIN PER PHARMACY 0 MG IV SCH (19:30)
[2023-05-28] MEDS: SODIUM CHLORIDE 0.9% 1,000 ML IV SCH (19:30)
[2023-05-28] MEDS ORDERED: INSULIN DRIP 100 UNIT/100ML 100 ML IV SCH (19:30)
[2023-05-28] MEDS ORDERED: VANCOMYCIN 1GM/250ML 250 ML IV ONE (20:00)
[2023-05-28 20:03] LABS: Carbon Dioxide < 10 mmol/L (20-30); Glucose 1068 mg/dL (74-106); Potassium 7.6 mmol/L (3.5-5.1)
[2023-05-28 20:31] LABS: Acetaminophen < 2.0 UG/ML (10.0-20.0)
[2023-05-28 20:32] LABS: Hemoglobin 9.4 g/dL (13.5-17.5); Mean Corpuscular Volume 103.1 fL (80.0-100.0)
[2023-05-28 20:33] LABS: Mean Corpuscular Hemoglobin 28.5 pg (28.0-32.0); Mean Corpuscular Hgb Conc. 27.6 g/dL (32.0-36.0); Red Cell Distribution Width 15.8 % (11.8-14.3)
[2023-05-28 20:37] LABS: Chloride 94 mmol/L (98-107); Sodium 131 mmol/L (136-145)
[2023-05-28 20:38] LABS: Anion Gap 27.00001 (5-15)
[2023-05-28] MEDS: MIDAZOLAM DRIP 50 mg/50mL 50 ML IV SCH (20:38)
[2023-05-28 20:39] LABS: Calcium 8.1 mg/dL (8.7-10.4)
[2023-05-28 20:41] LABS: White Blood Cell 30.1 10^3/uL (4.4-10.8)
[2023-05-28 20:42] LABS: Basophils % (manual) 0 (0.0-2.0); Blast Cells 0; Eosinophils % (manual) 0 (0-7); Metamyelocytes % 0; Myelocytes % 0; Promyelocytes % 0; Reactive Lymphocytes 0
[2023-05-28 20:44] LABS: BUN/Creatinine Ratio 11.3 (10.0-20.0); Blood Urea Nitrogen 36 mg/dL (9-23)
[2023-05-28 20:47] LABS: Lactic Acid w/Reflex 3.3 mmol/L (0.4-2.0)
[2023-05-28 20:48] LABS: INR 1.19 (0.9-1.15); Partial Thromboplastin Time 22.3 SEC (24.5-34.5); Prothrombin Time 12.4 sec (9.3-11.8)
[2023-05-28 20:55] LABS: Carbon Dioxide < 10 mmol/L (20-30); Glucose 1080 mg/dL (74-106); Potassium 7.7 mmol/L (3.5-5.1)
[2023-05-28] MEDS: NOREPINEPHRINE 8 MG/250ML KIT 250 ML IV SCH (21:08)
[2023-05-28] MEDS ORDERED: NITROGLYCERIN 0.4 MG SL TAB SL PRN (21:15)
[2023-05-28] MEDS ORDERED: MORPHINE SULFATE INJ 2 MG/ml SYRG IV PRN (21:15)
[2023-05-28] MEDS ORDERED: ACETAMINOPHEN 650 MG RECT SUPP PR PRN (21:15)
[2023-05-28] MEDS ORDERED: ONDANSETRON HCL 4 MG/2 ML VIAL IV PRN (21:15)
[2023-05-28 21:27] LABS: Base Excess -26.7 mmol/L (-2.0-2.0)
[2023-05-28] MEDS: HEPARIN SODIUM (PORCINE) 5000 UNITS/ML 1ML VIAL SC SCH (22:00)
[2023-05-28] MEDS ORDERED: SODIUM BICARBONATE 8.4% INJ 50ML SYRINGE IV ONE (22:15)
[2023-05-28] MEDS ORDERED: InsuLIN REG 1unit/0.01ml Soln (100units/ml) IV ONE (22:15)
[2023-05-28] MEDS ORDERED: CALCIUM CHL 100MG/ML 500 MG in D5W 5% 100 ML IV ONE (22:15)
[2023-05-28 22:28] LABS: Band Neutrophils % (manual) 4; Lymphocytes % (manual) 7 (10.0-50.0); Macrocytosis Slight; Monocytes % (manual) 4 (0-12); Platelet Estimate Adequate
[2023-05-28] MEDS: PHENYLEPHRINE IV 250 ML IV SCH (22:30)
[2023-05-28] MEDS ORDERED: CALCIUM GLUC 1,000mg/50ml-NS 50 ML IV ONE ×2 (22:30→23:09)
[2023-05-28 22:50] LABS: Lactic Acid w/Reflex 2.4 mmol/L (0.4-2.0)
[2023-05-28] MEDS: FAMOTIDINE (10MG/ML) 2ML VL IV SCH (23:49)
[2023-05-29] VITALS (58 sets, daily range): BP systolic 90–159; BP diastolic 51–84; PULSE 88–129; RESP 12–30; TEMP 97.6–98.1; O2SAT 100
[2023-05-29] MEDS: fentaNYL Drip 2500mCg/250mlNS 250 ML IV SCH (00:15)
[2023-05-29] MEDS: ACCU-CHEK COMFORT CURVE STRIP VI SCH ×16 (00:29→22:36)
[2023-05-29] MEDS: SODIUM BICARBONATE 50ML VIAL 150 ML in SOD CHL 0.45% 1,000 ML IV SCH ×2 (00:42→11:00)
[2023-05-29] MEDS: SODIUM CHLORIDE 0.9% 1,000 ML IV SCH ×2 (00:43→11:30)
[2023-05-29 00:44] LABS: Hemoglobin 9.1 g/dL (13.5-17.5); Mean Corpuscular Hemoglobin 28.7 pg (28.0-32.0); Mean Corpuscular Hgb Conc. 29.4 g/dL (32.0-36.0)
[2023-05-29 00:45] LABS: Mean Corpuscular Volume 97.7 fL (80.0-100.0); Red Blood Cells 3.17 10^6/uL (4.5-5.90); Red Cell Distribution Width 16.1 % (11.8-14.3); White Blood Cell 27.2 10^3/uL (4.4-10.8)
[2023-05-29] MEDS ORDERED: INSULIN DRIP 100 UNIT/100ML 100 ML IV SCH ×3 (00:45→03:30)
[2023-05-29 00:49] LABS: Band Neutrophils % (manual) 0; Basophils % (manual) 0 (0.0-2.0); Blast Cells 0; Eosinophils % (manual) 0 (0-7); Metamyelocytes % 0; Myelocytes % 0; Promyelocytes % 0; Reactive Lymphocytes 0
[2023-05-29 01:03] LABS: Alanine Aminotransferase 13 U/L (7-40); Albumin 4.1 g/dL (3.2-4.8); Alkaline Phosphatase 171 U/L (46-116); Aspartate Aminotransferase 19 U/L (13-40); BUN/Creatinine Ratio 12.2 (10.0-20.0); Bilirubin, Total 0.2 mg/dL (0.2-1.0); Blood Urea Nitrogen 41 mg/dL (9-23); Calcium 8.2 mg/dL (8.7-10.4); Chloride 98 mmol/L (98-107); Potassium 4.3 mmol/L (3.5-5.1); Sodium 136 mmol/L (136-145); Total Protein 6.2 g/dL (5.7-8.2)
[2023-05-29 01:50] LABS: Lymphocytes % (manual) 13 (10.0-50.0); Monocytes % (manual) 5 (0-12); Platelet Estimate Adequate
[2023-05-29 02:01] LABS: Carbon Dioxide < 10 mmol/L (20-30); Glucose 919 mg/dL (74-106)
[2023-05-29 02:50] LABS: Base Excess -17.8 mmol/L (-2.0-2.0)
[2023-05-29 02:58] LABS: Basophils # (auto) 0 10 ^3/uL (0-0.2); Basophils % (auto) 0.1 % (0.0-2.0); Eosinophils # (auto) 0.1 10 ^3/uL (0-0.8); Hemoglobin 8.7 g/dL (13.5-17.5); Monocytes # (auto) 1.1 10 ^3/uL (0-1.3)
[2023-05-29 03:00] LABS: Eosinophils % (auto) 0.5 % (0.0-7.0); Lymphocytes # (auto) 1.7 10 ^3/uL (0.4-5.4); Lymphocytes % (auto) 7.5 % (10.0-50.0); Mean Corpuscular Volume 93.7 fL (80.0-100.0); Monocytes % (auto) 4.6 % (0.0-12.0); Neutrophils % (auto) 87.3 % (37.0-80.0); Red Blood Cells 2.98 10^6/uL (4.5-5.90); Red Cell Distribution Width 15.4 % (11.8-14.3); White Blood Cell 22.9 10^3/uL (4.4-10.8)
[2023-05-29 03:06] LABS: Alanine Aminotransferase 12 U/L (7-40); Albumin 3.8 g/dL (3.2-4.8); Alkaline Phosphatase 144 U/L (46-116); Anion Gap 27 (5-15); Aspartate Aminotransferase 21 U/L (13-40); BUN/Creatinine Ratio 12.2 (10.0-20.0); Blood Urea Nitrogen 40 mg/dL (9-23); Calcium 8.1 mg/dL (8.5-10.1); Carbon Dioxide 11 mmol/L (20-30); Chloride 102 mmol/L (98-107); Potassium 3.5 mmol/L (3.5-5.1); Sodium 140 mmol/L (136-145)
[2023-05-29 03:07] LABS: Bilirubin, Total 0.3 mg/dL (0.2-1.0); Total Protein 5.8 g/dL (5.7-8.2)
[2023-05-29 03:35] LABS: Glucose 818 mg/dL (74-106)
[2023-05-29] MEDS: MIDAZOLAM DRIP 50 mg/50mL 50 ML IV SCH ×2 (03:39→06:05)
[2023-05-29] MEDS: NOREPINEPHRINE 8 MG/250ML KIT 250 ML IV SCH (06:04)
[2023-05-29 06:15] LABS: Urine Bacteria NONE SEEN /hpf (None Seen); Urine Blood 3+ /uL (Negative); Urine Budding Yeast MANY /hpf (None Seen); Urine Clarity CLOUDY (Clear); Urine Color PINK (Yellow); Urine Mucus FEW (None Seen); Urine Protein, UAD 2+ (Negative); Urine Specific Gravity 1.017 (1.001-1.035); Urine Urobilinogen Normal (Negative); Urine WBC 372 /hpf (0 - 3); Urine WBC Clumps PRESENT /hpf (None Seen); Urine pH 5.5 (5.0-8.0)
[2023-05-29 06:17] LABS: Alanine Aminotransferase 12 U/L (7-40); Albumin 3.6 g/dL (3.2-4.8); Alkaline Phosphatase 145 U/L (46-116); Anion Gap 20 (5-15); Aspartate Aminotransferase 20 U/L (13-40); BUN/Creatinine Ratio 11.8 (10.0-20.0); Bilirubin, Total 0.3 mg/dL (0.2-1.0); Blood Urea Nitrogen 39 mg/dL (9-23); Calcium 8.1 mg/dL (8.7-10.4); Carbon Dioxide 17 mmol/L (20-30); Chloride 104 mmol/L (98-107); Sodium 141 mmol/L (136-145); Total Protein 5.5 g/dL (5.7-8.2)
[2023-05-29 06:18] LABS: Basophils # (auto) 0 10 ^3/uL (0-0.2); Basophils % (auto) 0.1 % (0.0-2.0); Hemoglobin 8.3 g/dL (13.5-17.5); Lymphocytes % (auto) 6.2 % (10.0-50.0); Monocytes # (auto) 0.9 10 ^3/uL (0-1.3); Red Blood Cells 2.85 10^6/uL (4.5-5.90)
[2023-05-29 06:24] LABS: Eosinophils # (auto) 0 10 ^3/uL (0-0.8); Eosinophils % (auto) 0.1 % (0.0-7.0); Hematocrit 25.2 % (41.0-53.0); Mean Corpuscular Hgb Conc. 32.8 g/dL (32.0-36.0); Mean Corpuscular Volume 88.6 fL (80.0-100.0); Monocytes % (auto) 5.3 % (0.0-12.0); Neutrophils # (auto) 14.7 10 ^3/uL (1.6-8.6); Neutrophils % (auto) 88.3 % (37.0-80.0); Nucleated Red Blood Cells % 0.1 %; Red Cell Distribution Width 14.3 % (11.8-14.3); White Blood Cell 16.6 10^3/uL (4.4-10.8)
[2023-05-29 06:28] LABS: Amphetamine Screen, Urine Neg (NEGATIVE); Barbiturate Scree,Urine Neg (NEGATIVE); Benzodiazephine Screen, Urine Pos (NEGATIVE); Cannabinoid Screen, Urine Neg (NEGATIVE); Cocaine Screen, Urine Neg (NEGATIVE); Opiate Scree,Urine Neg (NEGATIVE); Phencyclidine Screen, Urine Neg (NEGATIVE)
[2023-05-29 07:43] LABS: Glucose 687 mg/dL (74-106); Potassium 2.8 mmol/L (3.5-5.1)
[2023-05-29 08:10] LABS: Base Excess -5.6 mmol/L (-2.0-2.0)
[2023-05-29] MEDS: PHENYLEPHRINE IV 250 ML IV SCH ×3 (08:19→23:30)
[2023-05-29] MEDS ORDERED: VANCOMYCIN 750mg/250ml 250 ML IV ONE (09:45)
[2023-05-29] MEDS: PIPERACILLIN-TAZOB 3.375GM 100 ML IV SCH ×2 (11:07→18:47)
[2023-05-29] MEDS: HEPARIN SODIUM (PORCINE) 5000 UNITS/ML 1ML VIAL SC SCH ×2 (11:08→21:49)
[2023-05-29] MEDS: INSULIN LANTUS (GLARGINE) 1 /0.01ml (100units/ml) SC SCH ×2 (11:11→22:00)
[2023-05-29] MEDS: FAMOTIDINE (10MG/ML) 2ML VL IV SCH ×2 (11:12→21:42)
[2023-05-29 16:34] LABS: Magnesium 1.7 mg/dL (1.6-2.6)
[2023-05-29 16:35] LABS: Phosphorus 1.1 mg/dL (2.4-5.1)
[2023-05-29] MEDS: POTASSIUM CHL 20MEQ/100ML 100 ML IV SCH ×2 (16:44→18:38)
[2023-05-29 18:25] LABS: Protein, Urine 178.8 mg/dL (0.0-11.9)
[2023-05-29 18:27] LABS: Creatinine, Urine 30.17 mg/dL (30.0-125.0)
[2023-05-29] MEDS ORDERED: PIPERACILLIN-TAZOB 3.375GM 100 ML IV SCH (21:00)
[2023-05-30] VITALS (103 sets, daily range): BP systolic 107–158; BP diastolic 71–99; PULSE 92–102; RESP 15–20; TEMP 95.7–98.6; O2SAT 98–100
[2023-05-30] MEDS: fentaNYL Drip 2500mCg/250mlNS 250 ML IV SCH (00:15)
[2023-05-30] MEDS: ACCU-CHEK COMFORT CURVE STRIP VI SCH ×8 (00:26→20:17)
[2023-05-30] MEDS: SODIUM CHLORIDE 0.9% 1,000 ML IV SCH ×2 (00:27→16:45)
[2023-05-30] MEDS ORDERED: INSULIN DRIP 100 UNIT/100ML 100 ML IV SCH ×2 (00:30→02:00)
[2023-05-30] MEDS: MIDAZOLAM DRIP 50 mg/50mL 50 ML IV SCH ×2 (01:02→12:10)
[2023-05-30 01:05] LABS: Chloride 112 mmol/L (98-107); Potassium 3.8 mmol/L (3.5-5.1)
[2023-05-30 01:06] LABS: Anion Gap 10 (5-15); Carbon Dioxide 27 mmol/L (20-30)
[2023-05-30 01:07] LABS: Calcium 8.7 mg/dL (8.7-10.4)
[2023-05-30 01:12] LABS: Blood Urea Nitrogen 33 mg/dL (9-23); Glucose 104 mg/dL (74-106)
[2023-05-30 01:29] LABS: Sodium 149 mmol/L (136-145)
[2023-05-30] MEDS: PIPERACILLIN-TAZOB 3.375GM 100 ML IV SCH ×3 (01:53→18:00)
[2023-05-30 04:20] LABS: Basophils # (auto) 0 10 ^3/uL (0-0.2); Basophils % (auto) 0.2 % (0.0-2.0); Eosinophils # (auto) 0 10 ^3/uL (0-0.8); Eosinophils % (auto) 0.1 % (0.0-7.0); Hematocrit 27.9 % (41.0-53.0); Hemoglobin 9.2 g/dL (13.5-17.5); Lymphocytes # (auto) 0.9 10 ^3/uL (0.4-5.4); Lymphocytes % (auto) 5.9 % (10.0-50.0); Mean Corpuscular Hemoglobin 28.5 pg (28.0-32.0); Mean Corpuscular Volume 86.2 fL (80.0-100.0); Monocytes # (auto) 1.1 10 ^3/uL (0-1.3); Monocytes % (auto) 7.1 % (0.0-12.0); Neutrophils # (auto) 12.8 10 ^3/uL (1.6-8.6); Neutrophils % (auto) 86.7 % (37.0-80.0); Red Blood Cells 3.23 10^6/uL (4.5-5.90); Red Cell Distribution Width 14.5 % (11.8-14.3); White Blood Cell 14.7 10^3/uL (4.4-10.8)
[2023-05-30 04:34] LABS: Alanine Aminotransferase 10 U/L (7-40); Albumin 3.6 g/dL (3.2-4.8); Alkaline Phosphatase 148 U/L (46-116); Anion Gap 12 (5-15); Aspartate Aminotransferase 28 U/L (13-40); BUN/Creatinine Ratio 13.2 (10.0-20.0); Bilirubin, Total 0.3 mg/dL (0.2-1.0); Blood Urea Nitrogen 32 mg/dL (9-23); Calcium 8.7 mg/dL (8.7-10.4); Carbon Dioxide 25 mmol/L (20-30); Chloride 112 mmol/L (98-107); Glucose 127 mg/dL (74-106); Potassium 3.9 mmol/L (3.5-5.1); Sodium 149 mmol/L (136-145); Total Protein 5.6 g/dL (5.7-8.2)
[2023-05-30] MEDS: PHENYLEPHRINE IV 250 ML IV SCH ×2 (06:25→16:10)
[2023-05-30 06:43] LABS: Base Excess -2.2 mmol/L (-2.0-2.0)
[2023-05-30] MEDS: InsuLIN REG 1unit/0.01ml Soln (100units/ml) SC SCH ×4 (08:30→20:27)
[2023-05-30] MEDS: HEPARIN SODIUM (PORCINE) 5000 UNITS/ML 1ML VIAL SC SCH ×2 (09:47→22:10)
[2023-05-30] MEDS: FAMOTIDINE (10MG/ML) 2ML VL IV SCH ×2 (09:47→22:03)
[2023-05-30] MEDS: INSULIN LANTUS (GLARGINE) 1 /0.01ml (100units/ml) SC SCH ×2 (09:51→22:09)
[2023-05-30] MEDS ORDERED: VANCOMYCIN 500 MG in D5W 5% 100 ML IV ONE (14:00)
[2023-05-30] MEDS: LACTATED RINGER'S 1,000 ML IV SCH (18:34)
[2023-05-30] MEDS: NOREPINEPHRINE 8 MG/250ML KIT 250 ML IV SCH (19:30)
[2023-05-31] VITALS (103 sets, daily range): BP systolic 113–172; BP diastolic 73–100; PULSE 81–96; RESP 14–24; TEMP 92.1–100.2; O2SAT 98–100
[2023-05-31] MEDS: fentaNYL Drip 2500mCg/250mlNS 250 ML IV SCH (00:15)
[2023-05-31] MEDS: PHENYLEPHRINE IV 250 ML IV SCH ×3 (00:30→17:10)
[2023-05-31] MEDS: PIPERACILLIN-TAZOB 3.375GM 100 ML IV SCH ×2 (02:40→10:09)
[2023-05-31] MEDS: ACCU-CHEK COMFORT CURVE STRIP VI SCH ×7 (04:00→23:36)
[2023-05-31] MEDS: InsuLIN REG 1unit/0.01ml Soln (100units/ml) SC SCH ×7 (04:00→23:37)
[2023-05-31 04:16] LABS: Basophils # (auto) 0.1 10 ^3/uL (0-0.2); Basophils % (auto) 0.7 % (0.0-2.0); Eosinophils # (auto) 0.1 10 ^3/uL (0-0.8); Eosinophils % (auto) 0.6 % (0.0-7.0); Hematocrit 27.5 % (41.0-53.0); Hemoglobin 9.1 g/dL (13.5-17.5); Lymphocytes # (auto) 1.1 10 ^3/uL (0.4-5.4); Lymphocytes % (auto) 12.1 % (10.0-50.0); Mean Corpuscular Hemoglobin 28.6 pg (28.0-32.0); Mean Corpuscular Hgb Conc. 33.2 g/dL (32.0-36.0); Mean Corpuscular Volume 86.2 fL (80.0-100.0); Monocytes # (auto) 0.8 10 ^3/uL (0-1.3); Monocytes % (auto) 8.9 % (0.0-12.0); Neutrophils % (auto) 77.7 % (37.0-80.0); Red Blood Cells 3.19 10^6/uL (4.5-5.90); Red Cell Distribution Width 14.6 % (11.8-14.3)
[2023-05-31 04:28] LABS: Alkaline Phosphatase 134 U/L (46-116); Anion Gap 9 (5-15); BUN/Creatinine Ratio 12.6 (10.0-20.0); Blood Urea Nitrogen 25 mg/dL (9-23); Calcium 9.1 mg/dL (8.7-10.4); Carbon Dioxide 27 mmol/L (20-30); Chloride 115 mmol/L (98-107); Glucose 77 mg/dL (74-106); Potassium 3.5 mmol/L (3.5-5.1); Sodium 151 mmol/L (136-145)
[2023-05-31 04:29] LABS: Albumin 3.4 g/dL (3.2-4.8); Aspartate Aminotransferase 19 U/L (13-40); Bilirubin, Total 0.3 mg/dL (0.2-1.0); Total Protein 5.4 g/dL (5.7-8.2)
[2023-05-31 04:36] LABS: Alanine Aminotransferase < 9 U/L (7-40)
[2023-05-31] MEDS: LACTATED RINGER'S 1,000 ML IV SCH (07:37)
[2023-05-31] MEDS: FAMOTIDINE (10MG/ML) 2ML VL IV SCH ×2 (10:10→22:03)
[2023-05-31] MEDS: HEPARIN SODIUM (PORCINE) 5000 UNITS/ML 1ML VIAL SC SCH ×2 (10:10→22:08)
[2023-05-31] MEDS: INSULIN LANTUS (GLARGINE) 1 /0.01ml (100units/ml) SC SCH ×2 (10:17→22:08)
[2023-05-31] MEDS ORDERED: VANCOMYCIN 500 MG in D5W 5% 100 ML IV ONE (12:00)
[2023-05-31 13:05] LABS: Base Excess -0.2 mmol/L (-2.0-2.0)
[2023-05-31] MEDS ORDERED: cefTRIAXone 1GM/50ML D5W 50 ML IV ONE (14:15)
[2023-05-31] MEDS: SOD CHL 0.45% 1,000 ML IV SCH (15:27)
[2023-05-31] MEDS: MIDAZOLAM DRIP 50 mg/50mL 50 ML IV SCH (19:30)
[2023-05-31] MEDS: NOREPINEPHRINE 8 MG/250ML KIT 250 ML IV SCH (19:30)
[2023-06-01] VITALS (111 sets, daily range): BP systolic 74–168; BP diastolic 45–97; PULSE 79–105; RESP 16–29; TEMP 92.8–99.7; O2SAT 98–100
[2023-06-01] MEDS: fentaNYL Drip 2500mCg/250mlNS 250 ML IV SCH (00:15)
[2023-06-01] MEDS: PHENYLEPHRINE IV 250 ML IV SCH ×3 (01:30→19:00)
[2023-06-01] MEDS: ACCU-CHEK COMFORT CURVE STRIP VI SCH ×5 (03:47→20:12)
[2023-06-01] MEDS: InsuLIN REG 1unit/0.01ml Soln (100units/ml) SC SCH ×5 (03:54→20:00)
[2023-06-01] MEDS: DEXTROSE (50%) 50ML SYRG IV PRN ×2 (03:55→07:59)
[2023-06-01 04:18] LABS: Basophils # (auto) 0 10 ^3/uL (0-0.2); Basophils % (auto) 0.6 % (0.0-2.0); Eosinophils # (auto) 0 10 ^3/uL (0-0.8); Eosinophils % (auto) 0.3 % (0.0-7.0); Hematocrit 28.7 % (41.0-53.0); Hemoglobin 9.6 g/dL (13.5-17.5); Lymphocytes # (auto) 1.1 10 ^3/uL (0.4-5.4); Lymphocytes % (auto) 12.7 % (10.0-50.0); Mean Corpuscular Hemoglobin 28.9 pg (28.0-32.0); Mean Corpuscular Hgb Conc. 33.4 g/dL (32.0-36.0); Mean Corpuscular Volume 86.5 fL (80.0-100.0); Monocytes # (auto) 0.8 10 ^3/uL (0-1.3); Monocytes % (auto) 9.7 % (0.0-12.0); Neutrophils # (auto) 6.5 10 ^3/uL (1.6-8.6); Neutrophils % (auto) 76.7 % (37.0-80.0); Red Blood Cells 3.32 10^6/uL (4.5-5.90); Red Cell Distribution Width 15.1 % (11.8-14.3); White Blood Cell 8.4 10^3/uL (4.4-10.8)
[2023-06-01 04:35] LABS: Albumin 3.4 g/dL (3.2-4.8); Alkaline Phosphatase 131 U/L (46-116); Anion Gap 7 (5-15); Aspartate Aminotransferase 14 U/L (13-40); Bilirubin, Total 0.4 mg/dL (0.2-1.0); Blood Urea Nitrogen 19 mg/dL (9-23); Calcium 8.8 mg/dL (8.7-10.4); Carbon Dioxide 27 mmol/L (20-30); Chloride 114 mmol/L (98-107); Glucose 54 mg/dL (74-106); Magnesium 1.7 mg/dL (1.6-2.6); Potassium 3.6 mmol/L (3.5-5.1); Sodium 148 mmol/L (136-145); Total Protein 5.5 g/dL (5.7-8.2)
[2023-06-01 04:36] LABS: Alanine Aminotransferase < 9 U/L (7-40)
[2023-06-01] MEDS: SOD CHL 0.45% 1,000 ML IV SCH ×2 (04:54→17:21)
[2023-06-01] MEDS ORDERED: Glucerna 1.2 Cal 1Liter BOTTLE GT SCH (08:00)
[2023-06-01] MEDS: cefTRIAXone 1GM/50ML D5W 50 ML IV SCH (08:58)
[2023-06-01] MEDS: INSULIN LANTUS (GLARGINE) 1 /0.01ml (100units/ml) SC SCH ×2 (10:00→22:16)
[2023-06-01] MEDS: FAMOTIDINE (10MG/ML) 2ML VL IV SCH ×2 (10:17→22:12)
[2023-06-01] MEDS: HEPARIN SODIUM (PORCINE) 5000 UNITS/ML 1ML VIAL SC SCH ×2 (10:17→22:17)
[2023-06-01] MEDS: Glucerna 1.2 Cal 1Liter BOTTLE GT SCH (12:34)
[2023-06-01] MEDS: NOREPINEPHRINE 8 MG/250ML KIT 250 ML IV SCH (19:30)
[2023-06-01] MEDS: MIDAZOLAM DRIP 50 mg/50mL 50 ML IV SCH (19:30)
[2023-06-02] VITALS (114 sets, daily range): BP systolic 133–190; BP diastolic 75–141; PULSE 90–109; RESP 15–30; TEMP 98.5–99.3; O2SAT 99–100
[2023-06-02] MEDS: InsuLIN REG 1unit/0.01ml Soln (100units/ml) SC SCH ×7 (00:02→23:55)
[2023-06-02] MEDS: ACCU-CHEK COMFORT CURVE STRIP VI SCH ×7 (00:02→23:54)
[2023-06-02] MEDS: fentaNYL Drip 2500mCg/250mlNS 250 ML IV SCH (00:15)
[2023-06-02] MEDS: PHENYLEPHRINE IV 250 ML IV SCH ×3 (02:30→19:10)
[2023-06-02 05:18] LABS: Basophils # (auto) 0 10 ^3/uL (0-0.2); Basophils % (auto) 0.3 % (0.0-2.0); Eosinophils # (auto) 0 10 ^3/uL (0-0.8); Eosinophils % (auto) 0.4 % (0.0-7.0); Hematocrit 27.7 % (41.0-53.0); Hemoglobin 9.1 g/dL (13.5-17.5); Lymphocytes # (auto) 0.9 10 ^3/uL (0.4-5.4); Lymphocytes % (auto) 7.9 % (10.0-50.0); Mean Corpuscular Hemoglobin 28.4 pg (28.0-32.0); Mean Corpuscular Hgb Conc. 32.8 g/dL (32.0-36.0); Mean Corpuscular Volume 86.7 fL (80.0-100.0); Monocytes # (auto) 1.3 10 ^3/uL (0-1.3); Neutrophils # (auto) 8.8 10 ^3/uL (1.6-8.6); Neutrophils % (auto) 79.4 % (37.0-80.0); Nucleated Red Blood Cells % 0.2 %; Red Blood Cells 3.19 10^6/uL (4.5-5.90); Red Cell Distribution Width 15.1 % (11.8-14.3)
[2023-06-02 05:44] LABS: Alanine Aminotransferase < 9 U/L (7-40); Albumin 3.2 g/dL (3.2-4.8); Alkaline Phosphatase 144 U/L (46-116); Anion Gap 7 (5-15); Aspartate Aminotransferase 21 U/L (13-40); BUN/Creatinine Ratio 16.5 (10.0-20.0); Bilirubin, Total 0.3 mg/dL (0.2-1.0); Blood Urea Nitrogen 16 mg/dL (9-23); Calcium 8.5 mg/dL (8.7-10.4); Carbon Dioxide 25 mmol/L (20-30); Chloride 112 mmol/L (98-107); Glucose 122 mg/dL (74-106); Magnesium 1.6 mg/dL (1.6-2.6); Potassium 3.5 mmol/L (3.5-5.1); Sodium 144 mmol/L (136-145); Total Protein 5.3 g/dL (5.7-8.2)
[2023-06-02 08:18] LABS: Base Excess -1.9 mmol/L (-2.0-2.0)
[2023-06-02] MEDS: INSULIN LANTUS (GLARGINE) 1 /0.01ml (100units/ml) SC SCH ×2 (10:00→22:21)
[2023-06-02] MEDS: cefTRIAXone 1GM/50ML D5W 50 ML IV SCH (10:04)
[2023-06-02] MEDS: SOD CHL 0.45% 1,000 ML IV SCH ×2 (10:05→22:22)
[2023-06-02] MEDS: HEPARIN SODIUM (PORCINE) 5000 UNITS/ML 1ML VIAL SC SCH ×2 (10:06→22:21)
[2023-06-02] MEDS: FAMOTIDINE (10MG/ML) 2ML VL IV SCH ×2 (10:06→22:19)
[2023-06-02] MEDS: ENALAPRILAT 1.25 MG/ML-1ML VIAL IV PRN (13:23)
[2023-06-02] MEDS: Glucerna 1.2 Cal 1Liter BOTTLE GT SCH (16:27)
[2023-06-02] MEDS: MIDAZOLAM DRIP 50 mg/50mL 50 ML IV SCH (19:30)
[2023-06-02] MEDS: NOREPINEPHRINE 8 MG/250ML KIT 250 ML IV SCH (19:30)
[2023-06-03] VITALS (104 sets, daily range): BP systolic 144–175; BP diastolic 72–97; PULSE 82–110; RESP 15–28; TEMP 98.2–99.3; O2SAT 98–100
[2023-06-03] MEDS: fentaNYL Drip 2500mCg/250mlNS 250 ML IV SCH (00:15)
[2023-06-03] MEDS: ENALAPRILAT 1.25 MG/ML-1ML VIAL IV PRN (00:50)
[2023-06-03] MEDS: PHENYLEPHRINE IV 250 ML IV SCH ×3 (03:30→20:10)
[2023-06-03 04:27] LABS: Basophils # (auto) 0 10 ^3/uL (0-0.2); Basophils % (auto) 0.3 % (0.0-2.0); Eosinophils # (auto) 0.1 10 ^3/uL (0-0.8); Eosinophils % (auto) 0.8 % (0.0-7.0); Hematocrit 26.7 % (41.0-53.0); Hemoglobin 9.1 g/dL (13.5-17.5); Lymphocytes # (auto) 0.7 10 ^3/uL (0.4-5.4); Lymphocytes % (auto) 8.1 % (10.0-50.0); Mean Corpuscular Hemoglobin 29.5 pg (28.0-32.0); Mean Corpuscular Volume 86.7 fL (80.0-100.0); Monocytes # (auto) 1.4 10 ^3/uL (0-1.3); Monocytes % (auto) 16.8 % (0.0-12.0); Neutrophils # (auto) 6.2 10 ^3/uL (1.6-8.6); Red Blood Cells 3.08 10^6/uL (4.5-5.90); Red Cell Distribution Width 15.2 % (11.8-14.3); White Blood Cell 8.3 10^3/uL (4.4-10.8)
[2023-06-03 04:38] LABS: Alanine Aminotransferase 11 U/L (7-40); Albumin 3.2 g/dL (3.2-4.8); Alkaline Phosphatase 158 U/L (46-116); Anion Gap 7 (5-15); Aspartate Aminotransferase 22 U/L (13-40); BUN/Creatinine Ratio 15.5 (10.0-20.0); Blood Urea Nitrogen 13 mg/dL (9-23); Calcium 8.7 mg/dL (8.7-10.4); Carbon Dioxide 26 mmol/L (20-30); Chloride 110 mmol/L (98-107); Glucose 146 mg/dL (74-106); Magnesium 1.7 mg/dL (1.6-2.6); Potassium 3.3 mmol/L (3.5-5.1); Sodium 143 mmol/L (136-145)
[2023-06-03 04:39] LABS: Bilirubin, Total 0.3 mg/dL (0.2-1.0); Total Protein 5.4 g/dL (5.7-8.2)
[2023-06-03] MEDS: ACCU-CHEK COMFORT CURVE STRIP VI SCH ×5 (05:36→20:00)
[2023-06-03] MEDS: InsuLIN REG 1unit/0.01ml Soln (100units/ml) SC SCH ×5 (05:38→20:00)
[2023-06-03 07:00] LABS: Base Excess -1.4 mmol/L (-2.0-2.0)
[2023-06-03] MEDS ORDERED: POTASSIUM CHL 20MEQ/100ML 100 ML IV ONE (08:30)
[2023-06-03] MEDS: INSULIN LANTUS (GLARGINE) 1 /0.01ml (100units/ml) SC SCH ×2 (08:59→22:00)
[2023-06-03] MEDS: cefTRIAXone 1GM/50ML D5W 50 ML IV SCH (09:06)
[2023-06-03] MEDS: HEPARIN SODIUM (PORCINE) 5000 UNITS/ML 1ML VIAL SC SCH ×2 (09:14→22:15)
[2023-06-03] MEDS: FAMOTIDINE (10MG/ML) 2ML VL IV SCH ×2 (09:18→22:15)
[2023-06-03] MEDS: FLUCONAZOLE 200MG/100ML 100 ML IV SCH ×2 (09:18→12:09)
[2023-06-03] MEDS: SOD CHL 0.45% 1,000 ML IV SCH ×2 (09:55→22:00)
[2023-06-03 14:38] LABS: Base Excess 0.6 mmol/L (-2.0-2.0)
[2023-06-03] MEDS: MIDAZOLAM DRIP 50 mg/50mL 50 ML IV SCH (19:30)
[2023-06-03] MEDS: NOREPINEPHRINE 8 MG/250ML KIT 250 ML IV SCH (19:30)
[2023-06-03] MEDS: Glucerna 1.2 Cal 1Liter BOTTLE GT SCH (20:00)
[2023-06-04] VITALS (97 sets, daily range): BP systolic 132–183; BP diastolic 55–96; PULSE 86–124; RESP 11–28; TEMP 98.2–99.7; O2SAT 97–100
[2023-06-04] MEDS: fentaNYL Drip 2500mCg/250mlNS 250 ML IV SCH (00:15)
[2023-06-04] MEDS: ACCU-CHEK COMFORT CURVE STRIP VI SCH ×7 (04:00→23:43)
[2023-06-04] MEDS: InsuLIN REG 1unit/0.01ml Soln (100units/ml) SC SCH ×7 (04:00→23:44)
[2023-06-04 04:06] LABS: Hematocrit 25.6 % (41.0-53.0); Hemoglobin 8.6 g/dL (13.5-17.5); Mean Corpuscular Hemoglobin 28.9 pg (28.0-32.0); Mean Corpuscular Hgb Conc. 33.5 g/dL (32.0-36.0); Mean Corpuscular Volume 86.2 fL (80.0-100.0); Red Blood Cells 2.96 10^6/uL (4.5-5.90); Red Cell Distribution Width 15.1 % (11.8-14.3); White Blood Cell 6.3 10^3/uL (4.4-10.8)
[2023-06-04 04:13] LABS: Band Neutrophils % (manual) 0; Basophils % (manual) 0 (0.0-2.0); Blast Cells 0; Eosinophils % (manual) 0 (0-7); Metamyelocytes % 0; Myelocytes % 0; Promyelocytes % 0; Reactive Lymphocytes 0
[2023-06-04 04:24] LABS: Albumin 3.1 g/dL (3.2-4.8); Alkaline Phosphatase 128 U/L (46-116); Anion Gap 8 (5-15); Aspartate Aminotransferase 15 U/L (13-40); BUN/Creatinine Ratio 10.7 (10.0-20.0); Blood Urea Nitrogen 8 mg/dL (9-23); Calcium 8.6 mg/dL (8.7-10.4); Carbon Dioxide 25 mmol/L (20-30); Chloride 108 mmol/L (98-107); Glucose 90 mg/dL (74-106); Magnesium 1.8 mg/dL (1.6-2.6); Potassium 3.3 mmol/L (3.5-5.1); Sodium 141 mmol/L (136-145)
[2023-06-04 04:25] LABS: Bilirubin, Total 0.2 mg/dL (0.2-1.0); Total Protein 5.2 g/dL (5.7-8.2)
[2023-06-04] MEDS: PHENYLEPHRINE IV 250 ML IV SCH ×2 (04:30→12:50)
[2023-06-04 04:33] LABS: Alanine Aminotransferase 9 U/L (7-40)
[2023-06-04] MEDS: cefTRIAXone 1GM/50ML D5W 50 ML IV SCH (08:45)
[2023-06-04] MEDS: FAMOTIDINE (10MG/ML) 2ML VL IV SCH ×2 (09:26→22:30)
[2023-06-04] MEDS: HEPARIN SODIUM (PORCINE) 5000 UNITS/ML 1ML VIAL SC SCH ×2 (09:26→22:30)
[2023-06-04] MEDS: INSULIN LANTUS (GLARGINE) 1 /0.01ml (100units/ml) SC SCH ×2 (09:34→22:38)
[2023-06-04] MEDS: ENALAPRILAT 1.25 MG/ML-1ML VIAL IV PRN (09:46)
[2023-06-04 09:53] LABS: Lymphocytes % (manual) 10 (10.0-50.0); Monocytes % (manual) 21 (0-12); Platelet Estimate Adequate
[2023-06-04] MEDS: SOD CHL 0.45% 1,000 ML IV SCH ×3 (12:35→22:40)
[2023-06-04] MEDS ORDERED: hydrALAZINE HCL 20 MG/ML VL ONE (13:34)
[2023-06-04] MEDS ORDERED: LISINOPRIL 20 MG TAB PO ONE (17:15)
[2023-06-04] MEDS ORDERED: METOPROLOL TARTRATE 25 MG TAB PO ONE (17:15)
[2023-06-04] MEDS: hydrALAZINE HCL 20 MG/ML VL IV PRN (20:44)
[2023-06-04] MEDS ORDERED: VANCOMYCIN 1GM/250ML 0 ML IV ONE (22:58)
[2023-06-05] VITALS (27 sets, daily range): BP systolic 110–166; BP diastolic 51–89; PULSE 88–122; RESP 13–26; TEMP 97.9–99.4; O2SAT 97–100
[2023-06-05] MEDS: ENALAPRILAT 1.25 MG/ML-1ML VIAL IV PRN (00:20)
[2023-06-05] MEDS: hydrALAZINE HCL 20 MG/ML VL IV PRN (02:10)
[2023-06-05] MEDS: InsuLIN REG 1unit/0.01ml Soln (100units/ml) SC SCH ×5 (04:00→20:00)
[2023-06-05] MEDS: ACCU-CHEK COMFORT CURVE STRIP VI SCH ×5 (04:00→20:00)
[2023-06-05 04:30] LABS: Hemoglobin 9.2 g/dL (13.5-17.5); Mean Corpuscular Hgb Conc. 34.3 g/dL (32.0-36.0); Mean Corpuscular Volume 84.6 fL (80.0-100.0); Red Blood Cells 3.19 10^6/uL (4.5-5.90); Red Cell Distribution Width 14.8 % (11.8-14.3); White Blood Cell 7.7 10^3/uL (4.4-10.8)
[2023-06-05 04:37] LABS: Band Neutrophils % (manual) 0; Basophils % (manual) 0 (0.0-2.0); Blast Cells 0; Eosinophils % (manual) 0 (0-7); Metamyelocytes % 0; Myelocytes % 0; Promyelocytes % 0; Reactive Lymphocytes 0
[2023-06-05 04:50] LABS: Albumin 3.3 g/dL (3.2-4.8); Alkaline Phosphatase 129 U/L (46-116); Anion Gap 8 (5-15); Aspartate Aminotransferase 14 U/L (13-40); BUN/Creatinine Ratio 10.1 (10.0-20.0); Blood Urea Nitrogen 9 mg/dL (9-23); Calcium 8.9 mg/dL (8.7-10.4); Carbon Dioxide 24 mmol/L (20-30); Chloride 108 mmol/L (98-107); Glucose 96 mg/dL (74-106); Magnesium 1.8 mg/dL (1.6-2.6); Sodium 140 mmol/L (136-145); Total Protein 5.6 g/dL (5.7-8.2)
[2023-06-05 04:54] LABS: Alanine Aminotransferase < 9 U/L (7-40)
[2023-06-05 04:57] LABS: Lymphocytes % (manual) 13 (10.0-50.0)
[2023-06-05 04:58] LABS: Bilirubin, Total 0.3 mg/dL (0.2-1.0); Monocytes % (manual) 26 (0-12); Platelet Estimate Adequate
[2023-06-05] MEDS: cefTRIAXone 1GM/50ML D5W 50 ML IV SCH (09:01)
[2023-06-05] MEDS: INSULIN LANTUS (GLARGINE) 1 /0.01ml (100units/ml) SC SCH ×2 (10:00→22:00)
[2023-06-05] MEDS: FAMOTIDINE (10MG/ML) 2ML VL IV SCH ×2 (11:29→23:19)
[2023-06-05] MEDS: LISINOPRIL 20 MG TAB PO SCH (11:30)
[2023-06-05] MEDS: METOPROLOL TARTRATE 25 MG TAB PO SCH ×2 (11:30→23:19)
[2023-06-05] MEDS: HEPARIN SODIUM (PORCINE) 5000 UNITS/ML 1ML VIAL SC SCH ×2 (11:31→23:20)
[2023-06-05] MEDS: SOD CHL 0.45% 1,000 ML IV SCH (16:49)
[2023-06-06] VITALS (23 sets, daily range): BP systolic 134–166; BP diastolic 68–91; PULSE 78–105; RESP 13–24; TEMP 98.3–99; O2SAT 93–99
[2023-06-06] MEDS: InsuLIN REG 1unit/0.01ml Soln (100units/ml) SC SCH ×6 (04:00→20:00)
[2023-06-06] MEDS: ACCU-CHEK COMFORT CURVE STRIP VI SCH ×6 (04:00→20:00)
[2023-06-06] MEDS: cefTRIAXone 1GM/50ML D5W 50 ML IV SCH (09:25)
[2023-06-06] MEDS: INSULIN LANTUS (GLARGINE) 1 /0.01ml (100units/ml) SC SCH ×2 (10:00→22:00)
[2023-06-06] MEDS: FAMOTIDINE (10MG/ML) 2ML VL IV SCH ×2 (11:20→23:24)
[2023-06-06] MEDS: METOPROLOL TARTRATE 25 MG TAB PO SCH ×2 (11:21→22:00)
[2023-06-06] MEDS: LISINOPRIL 20 MG TAB PO SCH (11:26)
[2023-06-06] MEDS: HEPARIN SODIUM (PORCINE) 5000 UNITS/ML 1ML VIAL SC SCH ×2 (11:26→23:28)
[2023-06-06 13:19] LABS: Basophils # (auto) 0 10 ^3/uL (0-0.2); Basophils % (auto) 0.7 % (0.0-2.0); Eosinophils # (auto) 0.1 10 ^3/uL (0-0.8); Eosinophils % (auto) 1.2 % (0.0-7.0); Hematocrit 26.1 % (41.0-53.0); Hemoglobin 8.6 g/dL (13.5-17.5); Lymphocytes # (auto) 0.9 10 ^3/uL (0.4-5.4); Lymphocytes % (auto) 14.6 % (10.0-50.0); Mean Corpuscular Hemoglobin 27.8 pg (28.0-32.0); Mean Corpuscular Hgb Conc. 32.8 g/dL (32.0-36.0); Mean Corpuscular Volume 84.8 fL (80.0-100.0); Monocytes # (auto) 1.1 10 ^3/uL (0-1.3); Neutrophils # (auto) 3.9 10 ^3/uL (1.6-8.6); Red Blood Cells 3.08 10^6/uL (4.5-5.90)
[2023-06-06 13:32] LABS: Monocytes % (auto) 18.5 % (0.0-12.0)
[2023-06-06 13:43] LABS: Chloride 106 mmol/L (98-107); Sodium 139 mmol/L (136-145)
[2023-06-06 13:44] LABS: Anion Gap 9 (5-15); Carbon Dioxide 24 mmol/L (20-30)
[2023-06-06 13:45] LABS: Calcium 8.5 mg/dL (8.5-10.1)
[2023-06-06 13:49] LABS: Glucose 136 mg/dL (74-106)
[2023-06-06 13:50] LABS: BUN/Creatinine Ratio 9.1 (10.0-20.0); Blood Urea Nitrogen 7 mg/dL (9-23)
[2023-06-06 13:53] LABS: Potassium 2.7 mmol/L (3.5-5.1)
[2023-06-06] MEDS: POTASSIUM CHL 20MEQ/100ML 100 ML IV SCH ×4 (14:13→20:11)
[2023-06-06] MEDS: SOD CHL 0.45% 1,000 ML IV SCH (16:06)
[2023-06-07] VITALS (13 sets, daily range): BP systolic 124–184; BP diastolic 66–91; PULSE 53–109; RESP 13–25; TEMP 94–99.5; O2SAT 91–99
[2023-06-07] MEDS: ACCU-CHEK COMFORT CURVE STRIP VI SCH ×6 (04:00→21:31)
[2023-06-07] MEDS: InsuLIN REG 1unit/0.01ml Soln (100units/ml) SC SCH ×6 (04:00→21:42)
[2023-06-07 06:16] LABS: Basophils # (auto) 0.1 10 ^3/uL (0-0.2); Basophils % (auto) 0.7 % (0.0-2.0); Eosinophils # (auto) 0 10 ^3/uL (0-0.8); Eosinophils % (auto) 0.4 % (0.0-7.0); Hematocrit 26.2 % (41.0-53.0); Hemoglobin 8.6 g/dL (13.5-17.5); Lymphocytes # (auto) 1.1 10 ^3/uL (0.4-5.4); Lymphocytes % (auto) 13.7 % (10.0-50.0); Mean Corpuscular Hgb Conc. 32.7 g/dL (32.0-36.0); Mean Corpuscular Volume 85.7 fL (80.0-100.0); Monocytes % (auto) 12.3 % (0.0-12.0); Neutrophils # (auto) 5.6 10 ^3/uL (1.6-8.6); Neutrophils % (auto) 72.9 % (37.0-80.0); Nucleated Red Blood Cells % 0.1 %; Red Blood Cells 3.06 10^6/uL (4.5-5.90); Red Cell Distribution Width 15.2 % (11.8-14.3); White Blood Cell 7.8 10^3/uL (4.4-10.8)
[2023-06-07 06:39] LABS: Anion Gap 13 (5-15); Calcium 8.5 mg/dL (8.7-10.4); Carbon Dioxide 21 mmol/L (20-30); Chloride 105 mmol/L (98-107); Potassium 3.6 mmol/L (3.5-5.1); Sodium 139 mmol/L (136-145)
[2023-06-07 06:45] LABS: BUN/Creatinine Ratio 9.7 (10.0-20.0); Blood Urea Nitrogen 9 mg/dL (9-23); Glucose 212 mg/dL (74-106)
[2023-06-07] MEDS: cefTRIAXone 1GM/50ML D5W 50 ML IV SCH (08:24)
[2023-06-07] MEDS: LISINOPRIL 20 MG TAB PO SCH (10:00)
[2023-06-07] MEDS: METOPROLOL TARTRATE 25 MG TAB PO SCH ×2 (10:00→22:04)
[2023-06-07] MEDS: FAMOTIDINE (10MG/ML) 2ML VL IV SCH ×2 (10:00→21:32)
[2023-06-07] MEDS: INSULIN LANTUS (GLARGINE) 1 /0.01ml (100units/ml) SC SCH ×2 (10:02→21:33)
[2023-06-07] MEDS: HEPARIN SODIUM (PORCINE) 5000 UNITS/ML 1ML VIAL SC SCH ×2 (10:03→21:32)
[2023-06-07] MEDS: SOD CHL 0.45% 1,000 ML IV SCH (21:53)
[2023-06-08] VITALS (8 sets, daily range): BP systolic 137–151; BP diastolic 72–79; PULSE 53–89; RESP 16–19; TEMP 98–98.9; O2SAT 97–98
[2023-06-08] MEDS: ACCU-CHEK COMFORT CURVE STRIP VI SCH ×6 (00:48→22:13)
[2023-06-08] MEDS: InsuLIN REG 1unit/0.01ml Soln (100units/ml) SC SCH ×6 (01:04→22:23)
[2023-06-08] MEDS ORDERED: ACETAMINOPHEN 325 MG TAB PO ONE (02:45)
[2023-06-08] MEDS: hydrALAZINE HCL 20 MG/ML VL IV PRN (04:55)
[2023-06-08 06:37] LABS: Basophils # (auto) 0 10 ^3/uL (0-0.2); Basophils % (auto) 0.7 % (0.0-2.0); Eosinophils # (auto) 0.1 10 ^3/uL (0-0.8); Eosinophils % (auto) 2.6 % (0.0-7.0); Hematocrit 27.8 % (41.0-53.0); Hemoglobin 9.4 g/dL (13.5-17.5); Lymphocytes # (auto) 1.2 10 ^3/uL (0.4-5.4); Lymphocytes % (auto) 21.3 % (10.0-50.0); Mean Corpuscular Hemoglobin 28.5 pg (28.0-32.0); Mean Corpuscular Hgb Conc. 33.7 g/dL (32.0-36.0); Mean Corpuscular Volume 84.7 fL (80.0-100.0); Monocytes % (auto) 17.6 % (0.0-12.0); Neutrophils # (auto) 3.2 10 ^3/uL (1.6-8.6); Neutrophils % (auto) 57.8 % (37.0-80.0); Red Blood Cells 3.29 10^6/uL (4.5-5.90); White Blood Cell 5.5 10^3/uL (4.4-10.8)
[2023-06-08 06:58] LABS: Anion Gap 7 (5-15); Calcium 8.6 mg/dL (8.5-10.1); Carbon Dioxide 26 mmol/L (20-30); Chloride 106 mmol/L (98-107); Potassium 3.1 mmol/L (3.5-5.1); Sodium 139 mmol/L (136-145)
[2023-06-08 07:04] LABS: BUN/Creatinine Ratio 6.7 (10.0-20.0); Blood Urea Nitrogen 5 mg/dL (9-23); Glucose 97 mg/dL (74-106)
[2023-06-08] MEDS ORDERED: POTASSIUM CHL 20 Meq TABLET PO ONE (07:30)
[2023-06-08] MEDS: LISINOPRIL 20 MG TAB PO SCH (09:17)
[2023-06-08] MEDS: cefTRIAXone 1GM/50ML D5W 50 ML IV SCH (09:18)
[2023-06-08] MEDS: METOPROLOL TARTRATE 25 MG TAB PO SCH ×2 (09:18→22:14)
[2023-06-08] MEDS: FAMOTIDINE (10MG/ML) 2ML VL IV SCH ×2 (09:19→22:25)
[2023-06-08] MEDS: INSULIN LANTUS (GLARGINE) 1 /0.01ml (100units/ml) SC SCH ×2 (09:31→22:21)
[2023-06-08] MEDS: HEPARIN SODIUM (PORCINE) 5000 UNITS/ML 1ML VIAL SC SCH ×2 (10:00→22:24)
[2023-06-08] MEDS: ACETAMINOPHEN 325 MG TAB PO PRN (22:17)
[2023-06-09] VITALS (7 sets, daily range): BP systolic 117–143; BP diastolic 68–84; PULSE 72–77; RESP 16–18; TEMP 98.3–98.7; O2SAT 97–99
[2023-06-09] MEDS: ACETAMINOPHEN 325 MG TAB PO PRN (06:33)
[2023-06-09] MEDS: ACCU-CHEK COMFORT CURVE STRIP VI SCH ×4 (06:34→21:57)
[2023-06-09] MEDS: InsuLIN REG 1unit/0.01ml Soln (100units/ml) SC SCH ×4 (06:34→21:58)
[2023-06-09 06:56] LABS: Hemoglobin 9.2 g/dL (13.5-17.5); White Blood Cell 4.9 10^3/uL (4.4-10.8)
[2023-06-09 06:58] LABS: Hematocrit 27.2 % (41.0-53.0); Mean Corpuscular Hemoglobin 28.5 pg (28.0-32.0); Mean Corpuscular Hgb Conc. 33.8 g/dL (32.0-36.0); Mean Corpuscular Volume 84.4 fL (80.0-100.0); Red Blood Cells 3.22 10^6/uL (4.5-5.90)
[2023-06-09 07:02] LABS: Basophils % (manual) 0 (0.0-2.0); Blast Cells 0; Promyelocytes % 0; Reactive Lymphocytes 0
[2023-06-09 07:27] LABS: Calcium 8.3 mg/dL (8.7-10.4); Chloride 107 mmol/L (98-107); Potassium 3.6 mmol/L (3.5-5.1); Sodium 139 mmol/L (136-145)
[2023-06-09 07:28] LABS: Anion Gap 5 (5-15); Carbon Dioxide 27 mmol/L (20-30)
[2023-06-09 07:33] LABS: BUN/Creatinine Ratio 6.4 (10.0-20.0); Blood Urea Nitrogen 5 mg/dL (9-23); Glucose 94 mg/dL (74-106)
[2023-06-09 08:24] LABS: Band Neutrophils % (manual) 5; Eosinophils % (manual) 4 (0-7); Lymphocytes % (manual) 20 (10.0-50.0); Metamyelocytes % 3; Monocytes % (manual) 8 (0-12); Myelocytes % 3; Platelet Estimate Increased
[2023-06-09] MEDS ORDERED: HEPARIN SODIUM (PORCINE) 5000 UNITS/ML 1ML VIAL ONE (09:48)
[2023-06-09] MEDS: FAMOTIDINE (10MG/ML) 2ML VL IV SCH ×2 (10:37→21:59)
[2023-06-09] MEDS: METOPROLOL TARTRATE 25 MG TAB PO SCH ×2 (10:39→22:00)
[2023-06-09] MEDS: LISINOPRIL 20 MG TAB PO SCH (10:40)
[2023-06-09] MEDS: HEPARIN SODIUM (PORCINE) 5000 UNITS/ML 1ML VIAL SC SCH ×2 (10:50→21:57)
[2023-06-09] MEDS: INSULIN LANTUS (GLARGINE) 1 /0.01ml (100units/ml) SC SCH ×2 (11:00→21:58)
[2023-06-10 05:00] VITALS: BP 121/75; PULSE 74; RESP 18; TEMP 98.5; O2SAT 100
[2023-06-10] MEDS: ACCU-CHEK COMFORT CURVE STRIP VI SCH ×4 (06:33→23:39)
[2023-06-10] MEDS: InsuLIN REG 1unit/0.01ml Soln (100units/ml) SC SCH ×4 (06:33→23:59)
[2023-06-10 06:39] LABS: Chloride 108 mmol/L (98-107); Potassium 3.7 mmol/L (3.5-5.1); Sodium 141 mmol/L (136-145)
[2023-06-10 06:40] LABS: Anion Gap 5 (5-15); Calcium 8.6 mg/dL (8.7-10.4); Carbon Dioxide 28 mmol/L (20-30)
[2023-06-10 06:45] LABS: Eosinophils # (auto) 0.1 10 ^3/uL (0-0.8); Glucose 79 mg/dL (74-106); Lymphocytes # (auto) 1.5 10 ^3/uL (0.4-5.4); Lymphocytes % (auto) 31.4 % (10.0-50.0); Monocytes # (auto) 0.8 10 ^3/uL (0-1.3); Neutrophils # (auto) 2.4 10 ^3/uL (1.6-8.6); Nucleated Red Blood Cells % 0.1 %; White Blood Cell 4.9 10^3/uL (4.4-10.8)
[2023-06-10 06:47] LABS: Basophils # (auto) 0.1 10 ^3/uL (0-0.2); Eosinophils % (auto) 2.8 % (0.0-7.0); Hematocrit 27.4 % (41.0-53.0); Hemoglobin 9.2 g/dL (13.5-17.5); Mean Corpuscular Hemoglobin 28.4 pg (28.0-32.0); Mean Corpuscular Hgb Conc. 33.5 g/dL (32.0-36.0); Mean Corpuscular Volume 84.8 fL (80.0-100.0); Monocytes % (auto) 15.8 % (0.0-12.0); Red Blood Cells 3.23 10^6/uL (4.5-5.90); Red Cell Distribution Width 15.4 % (11.8-14.3)
[2023-06-10 06:55] LABS: Blood Urea Nitrogen < 5 mg/dL (9-23)
[2023-06-10 08:30] VITALS: BP 133/80; PULSE 74; RESP 16; TEMP 98.1; O2SAT 97
[2023-06-10] MEDS: LISINOPRIL 20 MG TAB PO SCH (11:23)
[2023-06-10] MEDS: METOPROLOL TARTRATE 25 MG TAB PO SCH (11:23)
[2023-06-10] MEDS: FAMOTIDINE (10MG/ML) 2ML VL IV SCH ×2 (11:23→23:42)
[2023-06-10] MEDS: HEPARIN SODIUM (PORCINE) 5000 UNITS/ML 1ML VIAL SC SCH (11:32)
[2023-06-10] MEDS: INSULIN LANTUS (GLARGINE) 1 /0.01ml (100units/ml) SC SCH ×2 (11:34→23:59)
[2023-06-10 12:30] VITALS: BP 145/87; PULSE 79; RESP 18; TEMP 98.4; O2SAT 98
[2023-06-10 16:25] VITALS: BP 138/82; PULSE 75; RESP 18; TEMP 98.2; O2SAT 99
[2023-06-10 19:30] VITALS: RESP 16
[2023-06-10 22:00] VITALS: BP 145/89; PULSE 74; RESP 16; TEMP 97.5; O2SAT 100
[2023-06-11] MEDS: METOPROLOL TARTRATE 25 MG TAB PO SCH ×2 (00:01→09:23)
[2023-06-11 05:00] VITALS: BP 137/82; PULSE 83; RESP 16; TEMP 98.3; O2SAT 99
[2023-06-11 06:02] LABS: Chloride 105 mmol/L (98-107); Potassium 4.4 mmol/L (3.5-5.1); Sodium 138 mmol/L (136-145)
[2023-06-11 06:03] LABS: Anion Gap 8 (5-15); Carbon Dioxide 25 mmol/L (20-30)
[2023-06-11 06:08] LABS: BUN/Creatinine Ratio 10.1 (10.0-20.0); Blood Urea Nitrogen 7 mg/dL (9-23); Glucose 90 mg/dL (74-106)
[2023-06-11 06:14] LABS: Basophils # (auto) 0.1 10 ^3/uL (0-0.2); Basophils % (auto) 1.5 % (0.0-2.0); Eosinophils # (auto) 0.2 10 ^3/uL (0-0.8); Eosinophils % (auto) 3.7 % (0.0-7.0); Hematocrit 34.9 % (41.0-53.0); Lymphocytes # (auto) 1.6 10 ^3/uL (0.4-5.4); Lymphocytes % (auto) 35.1 % (10.0-50.0); Mean Corpuscular Hemoglobin 24.2 pg (28.0-32.0); Mean Corpuscular Hgb Conc. 28.7 g/dL (32.0-36.0); Mean Corpuscular Volume 84.5 fL (80.0-100.0); Monocytes # (auto) 0.8 10 ^3/uL (0-1.3); Monocytes % (auto) 17.2 % (0.0-12.0); Neutrophils % (auto) 42.5 % (37.0-80.0); Nucleated Red Blood Cells % 0.1 %; Red Blood Cells 4.14 10^6/uL (4.5-5.90); Red Cell Distribution Width 15.6 % (11.8-14.3); White Blood Cell 4.6 10^3/uL (4.4-10.8)
[2023-06-11] MEDS: InsuLIN REG 1unit/0.01ml Soln (100units/ml) SC SCH ×2 (06:46→12:05)
[2023-06-11] MEDS: ACCU-CHEK COMFORT CURVE STRIP VI SCH ×2 (06:46→11:30)
[2023-06-11 09:00] VITALS: BP 150/83; PULSE 74; RESP 17; TEMP 97; O2SAT 99
[2023-06-11] MEDS: FAMOTIDINE (10MG/ML) 2ML VL IV SCH (09:23)
[2023-06-11] MEDS: LISINOPRIL 20 MG TAB PO SCH (09:23)
[2023-06-11] MEDS: HEPARIN SODIUM (PORCINE) 5000 UNITS/ML 1ML VIAL SC SCH ×2 (09:33)
[2023-06-11] MEDS: INSULIN LANTUS (GLARGINE) 1 /0.01ml (100units/ml) SC SCH (09:33)
[2023-06-11 13:00] VITALS: BP 133/76; PULSE 73; RESP 16; TEMP 97.9; O2SAT 93
== END 2023-06-11 14:10 | DRG 870 ==
LOC: ER 15:08 → EDBD 15:08 → TELE 21:11 → ICU WEST 05-29 20:51 → DOU IN ICU 06-05 07:52 → ICU CENTRL 06-05 08:41 → DOU IN ICU 06-07 04:07 → TELE-WESTW 06-07 17:35 → WEST WING 06-09 14:01
PROVIDERS: ADMIT Nurse Practitioner Family; ATTEND Internal Medicine Geriatric Medicine
PROC: 5A1955Z Respiratory Ventilation, Greater than 96 Consecutive Hours (ICD-10-PCS; principal; 2023-05-28)
PROC: 0BH17EZ Insertion of Endotracheal Airway into Trachea, Via Natural or Artificial Opening (ICD-10-PCS; 2023-05-28)
PROC: 02HV33Z Insertion of Infusion Device into Superior Vena Cava, Percutaneous Approach (ICD-10-PCS; 2023-05-28)
DX: A41.9 Sepsis, unspecified organism (principal); E11.11 Type 2 diabetes mellitus with ketoacidosis with coma; J96.01 Acute respiratory failure with hypoxia; R65.21 Severe sepsis with septic shock; G93.41 Metabolic encephalopathy; N17.9 Acute kidney failure, unspecified; N39.0 Urinary tract infection, site not specified; Z99.11 Dependence on respirator [ventilator] status; E87.5 Hyperkalemia; D64.9 Anemia, unspecified; E87.6 Hypokalemia; I10 Essential (primary) hypertension; J45.909 Unspecified asthma, uncomplicated; K21.9 Gastro-esophageal reflux disease without esophagitis; Z79.899 Other long term (current) drug therapy; Z82.49 Family history of ischemic heart disease and other diseases of the circulatory system; Z83.3 Family history of diabetes mellitus; Z91.148 Patient's other noncompliance with medication regimen for other reason
CPT/HCPCS: 31500; 36415; 36556; 36600; 70450; 71045; 76775; 80048; 80053; 80202; 80307; 80320; 80329; 81001; 82010; 82550; 82553; 82570; 82805; 82962; 83605; 83735; 83880; 83930; 83970; 84100; 84132; 84156; 84300; 84443; 84484; 85007; 85025; 85027; 85379; 85384; 85610; 85730; 86850; 86900; 86901; 87040; 87070; 87081; 87086; 87088; 87186; 87205; 92610; 93005; 94002; 94003; 94640; 96365; 96366; 96367; 96375; 97110; 97116; 97163; 97530; G0378; J0696; J1450; J1815; J2250; J2543; J3480; J3490; J7060; P9047

== ENCOUNTER 2023-12-03 20:38 | Inpatient (IN) | payer OTHER, MEDICAID ==
[~2023-12-03] VITALS: Ht 190.5 cm; Wt 76.2 kg
[2023-12-03 21:29] LABS: Basophils # (auto) 0 10 ^3/uL (0-0.2); Eosinophils # (auto) 0 10 ^3/uL (0-0.8); Eosinophils % (auto) 0.1 % (0.0-7.0); Lymphocytes # (auto) 0.6 10 ^3/uL (0.4-5.4); Lymphocytes % (auto) 4.1 % (10.0-50.0)
[2023-12-03 21:30] LABS: Basophils % (auto) 0.3 % (0.0-2.0); Hematocrit 39.8 % (41.0-53.0); Hemoglobin 12.2 g/dL (13.5-17.5); Mean Corpuscular Hemoglobin 29.8 pg (28.0-32.0); Mean Corpuscular Hgb Conc. 30.7 g/dL (32.0-36.0); Mean Corpuscular Volume 97.1 fL (80.0-100.0); Monocytes % (auto) 7.4 % (0.0-12.0); Neutrophils # (auto) 12.4 10 ^3/uL (1.6-8.6); Neutrophils % (auto) 88.1 % (37.0-80.0); Nucleated Red Blood Cells % 0.1 %; Red Cell Distribution Width 17.5 % (11.8-14.3); White Blood Cell 14.1 10^3/uL (4.4-10.8)
[2023-12-03 21:37] LABS: Chloride 94 mmol/L (98-107); Potassium 5.3 mmol/L (3.5-5.1); Sodium 136 mmol/L (136-145)
[2023-12-03 21:38] LABS: Anion Gap 32.00001 (5-15); Calcium 9.7 mg/dL (8.7-10.4)
[2023-12-03] MEDS: SODIUM CHLORIDE 0.9% 1,000 ML IV ONE ×2 (21:40→22:02)
[2023-12-03 21:43] LABS: BUN/Creatinine Ratio 15.7 (10.0-20.0); Blood Urea Nitrogen 28 mg/dL (9-23); Lipase 42 U/L (12-53)
[2023-12-03 21:48] LABS: Carbon Dioxide < 10 mmol/L (20-30); Glucose 642 mg/dL (74-106)
[2023-12-03] MEDS ORDERED: DEXTROSE (50%) 50ML SYRG IV PRN (22:00)
[2023-12-03] MEDS: INSULIN LANTUS (GLARGINE) 1 /0.01ml (100units/ml) SC ONE (22:24)
[2023-12-03 22:28] LABS: Magnesium 2.3 mg/dL (1.6-2.6)
[2023-12-03 22:30] VITALS: PULSE 136; RESP 25; O2SAT 99
[2023-12-03] MEDS ORDERED: ACETAMINOPHEN 325 MG TAB PO PRN (22:30)
[2023-12-03] MEDS ORDERED: DOCUSATE SOD 100 MG CAP PO PRN (22:30)
[2023-12-03] MEDS ORDERED: HYDROcodone-ACET 5/325MG TAB PO PRN (22:30)
[2023-12-03] MEDS: INSULIN DRIP 100 UNIT/100ML 100 ML IV SCH (22:35)
[2023-12-03] MEDS: ACCU-CHEK COMFORT CURVE STRIP VI SCH (22:35)
[2023-12-03] MEDS: ONDANSETRON HCL 4 MG/2 ML VIAL IV PRN (22:52)
[2023-12-03] MEDS: cefTRIAXone 1GM/50ML D5W 50 ML IV ONE (23:44)
[2023-12-04] MEDS ORDERED: NITROGLYCERIN 0.4 MG SL TAB SL PRN
[2023-12-04] MEDS ORDERED: MORPHINE SULFATE INJ 2 MG/ml SYRG IV PRN
[2023-12-04 01:12] LABS: Urine Bacteria None Seen /hpf (None Seen)
[2023-12-04 02:38] LABS: Urine Blood Negative /uL (Negative); Urine Clarity Clear (Clear); Urine Color Straw (Yellow); Urine Hyaline Cast FEW /lpf (0 - 2); Urine Protein, UAD TRACE (Negative); Urine Specific Gravity 1.013 (1.001-1.035); Urine Urobilinogen Normal (Negative); Urine WBC 18 /hpf (0 - 3)
[2023-12-04] MEDS ORDERED: GABA-1308 PO (03:36)
[2023-12-04 06:44] LABS: Basophils # (auto) 0 10 ^3/uL (0-0.2); Basophils % (auto) 0.2 % (0.0-2.0); Eosinophils # (auto) 0 10 ^3/uL (0-0.8); Hematocrit 35.8 % (41.0-53.0); Hemoglobin 11.8 g/dL (13.5-17.5); Lymphocytes # (auto) 0.6 10 ^3/uL (0.4-5.4); Lymphocytes % (auto) 5.3 % (10.0-50.0); Mean Corpuscular Hemoglobin 30.3 pg (28.0-32.0); Mean Corpuscular Hgb Conc. 32.9 g/dL (32.0-36.0); Mean Corpuscular Volume 92.2 fL (80.0-100.0); Monocytes # (auto) 0.8 10 ^3/uL (0-1.3); Monocytes % (auto) 6.6 % (0.0-12.0); Neutrophils % (auto) 87.9 % (37.0-80.0); Nucleated Red Blood Cells % 0.1 %; Red Blood Cells 3.88 10^6/uL (4.5-5.90); White Blood Cell 11.4 10^3/uL (4.4-10.8)
[2023-12-04 06:51] LABS: Alkaline Phosphatase 124 U/L (46-116); Anion Gap 13 (5-15); Aspartate Aminotransferase 17 U/L (13-40); Blood Urea Nitrogen 20 mg/dL (9-23); Calcium 9.5 mg/dL (8.5-10.1); Carbon Dioxide 24 mmol/L (20-30); Chloride 106 mmol/L (98-107); Sodium 143 mmol/L (136-145)
[2023-12-04 06:52] LABS: Bilirubin, Total 0.7 mg/dL (0.2-1.0); Total Protein 6.6 g/dL (5.7-8.2)
[2023-12-04 06:58] LABS: Alanine Aminotransferase 9 U/L (7-40); Glucose 241 mg/dL (74-106)
[2023-12-04] MEDS: INSULIN LANTUS (GLARGINE) 1 /0.01ml (100units/ml) SC SCH (09:47)
[2023-12-04] MEDS: FAMOTIDINE (10MG/ML) 2ML VL IV SCH (09:52)
[2023-12-04 10:10] LABS: Chloride 107 mmol/L (98-107); Sodium 143 mmol/L (136-145)
[2023-12-04 10:11] LABS: Anion Gap 9 (5-15); Carbon Dioxide 27 mmol/L (20-30)
[2023-12-04 10:12] LABS: Calcium 9.4 mg/dL (8.5-10.1)
[2023-12-04 10:16] LABS: BUN/Creatinine Ratio 15.4 (10.0-20.0); Blood Urea Nitrogen 25 mg/dL (9-23); Glucose 195 mg/dL (74-106)
[2023-12-04] MEDS ORDERED: DEXTROSE (50%) 50ML SYRG IV PRN (14:45)
[2023-12-04] MEDS: LACTATED RINGER'S 1,000 ML IV SCH (14:45)
[2023-12-04] MEDS: InsuLIN REG 1unit/0.01ml Soln (100units/ml) SC SCH (16:00)
[2023-12-04 16:19] LABS: Chloride 105 mmol/L (98-107); Potassium 3.8 mmol/L (3.5-5.1); Sodium 141 mmol/L (136-145)
[2023-12-04 16:20] LABS: Anion Gap 9 (5-15); Carbon Dioxide 27 mmol/L (20-30)
[2023-12-04 16:25] LABS: BUN/Creatinine Ratio 16.4 (10.0-20.0); Blood Urea Nitrogen 23 mg/dL (9-23)
[2023-12-04 16:27] LABS: Glucose 65 mg/dL (74-106)
[2023-12-04] MEDS: ACCU-CHEK COMFORT CURVE STRIP VI SCH (18:29)
[2023-12-04] MEDS ORDERED: INSU100I67 SC (19:44)
[2023-12-04 19:59] LABS: Protein, Urine 27.9 mg/dL (0.0-11.9)
[2023-12-04 20:00] VITALS: PULSE 98
[2023-12-04 20:01] LABS: Creatinine, Urine 23.83 mg/dL (30.0-125.0)
[2023-12-04 21:00] VITALS: BP 149/70; PULSE 98; RESP 18; TEMP 98.7; O2SAT 98
[2023-12-04] MEDS: cefTRIAXone 1GM/50ML D5W 50 ML IV SCH (21:03)
[2023-12-05] VITALS (7 sets, daily range): BP systolic 141–154; BP diastolic 80–93; PULSE 93–99; RESP 17–20; TEMP 98.4–99.6; O2SAT 96–98
[2023-12-05 06:31] LABS: Basophils # (auto) 0 10 ^3/uL (0-0.2); Basophils % (auto) 0.4 % (0.0-2.0); Eosinophils # (auto) 0 10 ^3/uL (0-0.8); Eosinophils % (auto) 0.1 % (0.0-7.0); Hematocrit 37.1 % (41.0-53.0); Hemoglobin 12.2 g/dL (13.5-17.5); Lymphocytes % (auto) 11.4 % (10.0-50.0); Mean Corpuscular Hemoglobin 30.2 pg (28.0-32.0); Mean Corpuscular Hgb Conc. 32.8 g/dL (32.0-36.0); Monocytes # (auto) 0.9 10 ^3/uL (0-1.3); Monocytes % (auto) 10.5 % (0.0-12.0); Neutrophils # (auto) 6.6 10 ^3/uL (1.6-8.6); Neutrophils % (auto) 77.6 % (37.0-80.0); Nucleated Red Blood Cells % 0.1 %; Red Blood Cells 4.03 10^6/uL (4.5-5.90); Red Cell Distribution Width 17.3 % (11.8-14.3); White Blood Cell 8.5 10^3/uL (4.4-10.8)
[2023-12-05 06:47] LABS: Chloride 102 mmol/L (98-107); Potassium 3.8 mmol/L (3.5-5.1)
[2023-12-05 06:48] LABS: Anion Gap 9 (5-15); Carbon Dioxide 24 mmol/L (20-30)
[2023-12-05 06:49] LABS: Calcium 8.9 mg/dL (8.7-10.4)
[2023-12-05 06:53] LABS: BUN/Creatinine Ratio 20.6 (10.0-20.0); Blood Urea Nitrogen 22 mg/dL (9-23)
[2023-12-05 06:54] LABS: Magnesium 1.7 mg/dL (1.6-2.6)
[2023-12-05 06:55] LABS: Phosphorus 2.1 mg/dL (2.4-5.1)
[2023-12-05 07:01] LABS: Glucose 170 mg/dL (74-106); Sodium 135 mmol/L (136-145)
[2023-12-05] MEDS ORDERED: DEXTROSE (50%) 50ML SYRG IV PRN (10:00)
[2023-12-05] MEDS: INSULIN LANTUS (GLARGINE) 1 /0.01ml (100units/ml) SC SCH (10:04)
[2023-12-05] MEDS: ACCU-CHEK COMFORT CURVE STRIP VI SCH (12:57)
[2023-12-05] MEDS: InsuLIN REG 1unit/0.01ml Soln (100units/ml) SC SCH (12:59)
[2023-12-05] MEDS: LABETALOL HCL 5 MG/ML 4ML SYRINGE IV PRN (19:04)
[2023-12-06] VITALS (7 sets, daily range): BP systolic 133–167; BP diastolic 81–93; PULSE 79–94; RESP 16–20; TEMP 97.5–99.4; O2SAT 95–99
[2023-12-06 07:33] LABS: Chloride 104 mmol/L (98-107); Potassium 3.3 mmol/L (3.5-5.1); Sodium 137 mmol/L (136-145)
[2023-12-06 07:34] LABS: Anion Gap 6 (5-15); Calcium 9.3 mg/dL (8.5-10.1); Carbon Dioxide 27 mmol/L (20-30)
[2023-12-06 07:39] LABS: BUN/Creatinine Ratio 8.5 (10.0-20.0); Glucose 129 mg/dL (74-106)
[2023-12-06 07:46] LABS: Blood Urea Nitrogen 8 mg/dL (9-23)
[2023-12-06] MEDS: guaiFENesin-DM 100/10mg/5ml SYR PO PRN (13:19)
[2023-12-06] MEDS: POTASSIUM CHL 20 Meq TABLET PO ONE (13:20)
[2023-12-06] MEDS: AZITHROMYCIN 500MG/ 250ML 250 ML IV ONE (13:23)
[2023-12-06] MEDS: INSULIN LANTUS (GLARGINE) 1 /0.01ml (100units/ml) SC ONE (13:27)
[2023-12-07 01:00] VITALS: BP 165/91; PULSE 79; RESP 15; TEMP 99.3; O2SAT 100
[2023-12-07 04:56] VITALS: BP 150/100; PULSE 79; RESP 16; TEMP 98.9; O2SAT 99
[2023-12-07 06:18] LABS: Anion Gap 6 (5-15); Carbon Dioxide 28 mmol/L (20-30); Chloride 103 mmol/L (98-107); Potassium 3.4 mmol/L (3.5-5.1); Sodium 137 mmol/L (136-145)
[2023-12-07 06:19] LABS: Calcium 9.1 mg/dL (8.7-10.4)
[2023-12-07 06:23] LABS: Glucose 133 mg/dL (74-106)
[2023-12-07 06:24] LABS: BUN/Creatinine Ratio 10.4 (10.0-20.0); Blood Urea Nitrogen 8 mg/dL (9-23); Magnesium 1.9 mg/dL (1.6-2.6)
[2023-12-07 08:00] VITALS: BP 167/94; PULSE 89; RESP 20; TEMP 98.1; O2SAT 96
[2023-12-07] MEDS: INSULIN LANTUS (GLARGINE) 1 /0.01ml (100units/ml) SC SCH (08:46)
[2023-12-07] MEDS: AZITHROMYCIN 500MG/ 250ML 250 ML IV SCH (08:48)
[2023-12-07 09:00] VITALS: BP 167/94; PULSE 89; RESP 20; TEMP 98.1; O2SAT 96
[2023-12-07] MEDS: POTASSIUM CHL 20 Meq TABLET PO ONE (09:12)
[2023-12-07 13:00] VITALS: BP 140/89; PULSE 84; RESP 20; TEMP 98; O2SAT 99
[2023-12-07 13:30] VITALS: BP 140/89; PULSE 84; RESP 20; TEMP 98; O2SAT 99
== END 2023-12-07 15:17 | disposition home health service (06) | DRG 638 ==
LOC: EDBD 20:38 → ER 20:38 → TELE 23:56 → TELE-WESTW 12-04 16:35 → WEST WING 12-06 17:32
PROVIDERS: ADMIT Nurse Practitioner Family; ATTEND Internal Medicine Geriatric Medicine
DX: E11.10 Type 2 diabetes mellitus with ketoacidosis without coma (principal); N17.9 Acute kidney failure, unspecified; R65.10 Systemic inflammatory response syndrome (SIRS) of non-infectious origin without acute organ dysfunction; E87.5 Hyperkalemia; E11.22 Type 2 diabetes mellitus with diabetic chronic kidney disease; N18.32 Chronic kidney disease, stage 3b; I12.9 Hypertensive chronic kidney disease with stage 1 through stage 4 chronic kidney disease, or unspecified chronic kidney disease; J06.9 Acute upper respiratory infection, unspecified; E86.0 Dehydration; Z90.49 Acquired absence of other specified parts of digestive tract; Z83.3 Family history of diabetes mellitus; Z79.4 Long term (current) use of insulin; Z91.199 Patient's noncompliance with other medical treatment and regimen due to unspecified reason; Z82.49 Family history of ischemic heart disease and other diseases of the circulatory system
CPT/HCPCS: 36415; 71045; 76775; 80048; 80053; 81001; 82010; 82570; 82962; 83690; 83735; 83930; 84100; 84156; 84300; 84484; 85025; 87086; 93005; 96361; 96365; 96367; 96372; 96375; 97163; 99291; G0378; J1815; J2405; J3490

== ENCOUNTER 2024-01-12 17:10 | Emergency (ER) | payer OTHER, MEDICAID ==
[~2024-01-12] VITALS: Ht 182.9 cm; Wt 77.0 kg
[~2024-01-12 17:10] MED LIST changes: +GABA-1308 PO; +INSU100I67 SC; -INSU1INJ4 SC; -METF-372 PO; -PANT40TA2 PO; -SUCR1SUS26 PO
[2024-01-12 18:49] LABS: Basophils # (auto) 0 10 ^3/uL (0-0.2); Basophils % (auto) 0.4 % (0.0-2.0); Eosinophils # (auto) 0 10 ^3/uL (0-0.8); Eosinophils % (auto) 0.2 % (0.0-7.0); Hematocrit 42.7 % (41.0-53.0); Hemoglobin 14.2 g/dL (13.5-17.5); Lymphocytes # (auto) 1.2 10 ^3/uL (0.4-5.4); Lymphocytes % (auto) 20.2 % (10.0-50.0); Mean Corpuscular Hgb Conc. 33.2 g/dL (32.0-36.0); Mean Corpuscular Volume 93.3 fL (80.0-100.0); Monocytes # (auto) 0.4 10 ^3/uL (0-1.3); Monocytes % (auto) 6.5 % (0.0-12.0); Neutrophils # (auto) 4.5 10 ^3/uL (1.6-8.6); Neutrophils % (auto) 72.7 % (37.0-80.0); Red Blood Cells 4.58 10^6/uL (4.5-5.90); Red Cell Distribution Width 15.6 % (11.8-14.3); White Blood Cell 6.1 10^3/uL (4.4-10.8)
[2024-01-12 19:07] LABS: Alanine Aminotransferase 16 U/L (7-40); Albumin 4.7 g/dL (3.2-4.8); Alkaline Phosphatase 128 U/L (46-116); Anion Gap 11 (5-15); Aspartate Aminotransferase 21 U/L (13-40); BUN/Creatinine Ratio 11.7 (10.0-20.0); Bilirubin, Total 0.3 mg/dL (0.2-1.0); Blood Urea Nitrogen 12 mg/dL (9-23); Calcium 10.3 mg/dL (8.7-10.4); Carbon Dioxide 24 mmol/L (20-30); Chloride 104 mmol/L (98-107); Glucose 117 mg/dL (74-106); Potassium 4.3 mmol/L (3.5-5.1); Sodium 139 mmol/L (136-145); Total Protein 7.5 g/dL (5.7-8.2)
[2024-01-13 00:15] VITALS: BP 150/90; PULSE 90; RESP 18; TEMP 97.5; O2SAT 100
== END 2024-01-13 00:38 | disposition home or self-care (01) ==
LOC: EDBD 17:10 → ER 17:15
DX: E11.649 Type 2 diabetes mellitus with hypoglycemia without coma (principal); F12.10 Cannabis abuse, uncomplicated; Z90.49 Acquired absence of other specified parts of digestive tract
CPT/HCPCS: 36415; 71045; 80053; 82962; 83880; 84484; 85025